=== PATIENT | female | born 1945 | race Caucasian/White ===

== ENCOUNTER 2019-11-22 21:34 | Inpatient (IN) | payer MEDICARE ==
[2019-11-22 21:40] VITALS: BP 177/89
[2019-11-22] MEDS ORDERED: TRAM50TA PO (22:23)
[2019-11-22] MEDS ORDERED: PROP20TA PO (22:23)
[2019-11-22] MEDS ORDERED: BACL10TA PO (22:23)
[2019-11-22] MEDS ORDERED: ENOX40DI SQ (22:23)
[2019-11-22] MEDS ORDERED: MECL-75 PO (22:23)
[2019-11-22] MEDS ORDERED: LISI-334 PO (22:23)
[2019-11-22] MEDS ORDERED: ALLO100T PO (22:23)
[2019-11-22] MEDS ORDERED: PANT40TA6 PO (22:23)
[2019-11-22] MEDS ORDERED: BUPR150T11 PO (22:23)
[2019-11-22] MEDS ORDERED: MELO15TA23 PO (22:23)
[2019-11-22] MEDS ORDERED: INSU100I13 SQ (22:23)
[2019-11-22] MEDS ORDERED: MEMA5TAB PO (22:23)
[2019-11-22] MEDS ORDERED: METR500T PO (22:23)
[2019-11-22] MEDS ORDERED: CLOP75TA PO (22:23)
[2019-11-22] MEDS ORDERED: LORA-254 PO (22:23)
[2019-11-22] MEDS ORDERED: PRED20TA PO (22:23)
[2019-11-22] MEDS ORDERED: GABA-586 PO (22:23)
[2019-11-22] MEDS ORDERED: DULO60CA6 PO (22:23)
[2019-11-22] MEDS ORDERED: MECLIZINE 12.5 MG TABLET. PO PRN (22:45)
[2019-11-22] MEDS: BACLOFEN 10 MG TABLET PO PRN (23:36)
[2019-11-22] MEDS: GABAPENTIN 300 MG CAPSULE. PO SCH (23:36)
[2019-11-22] MEDS: PROPRANOLOL 20 MG TABLET. PO SCH (23:37)
[2019-11-22] MEDS: LORazepam 1 MG TABLET PO SCH (23:37)
[2019-11-22] MEDS: metroNIDAZOLE 500 MG TABLET PO SCH (23:37)
--- NOTE | 2019-11-23 03:57 | NUR ---
Nursing Note Pt arrives from [facility] ED with no report. Pt is tearful and upset from arrival to the unit. States that she will not harm herself, that she is sad her and really wants to join him. But that she is merely broken hearted and wants to be with him. She is missing him and is lost and sad. She claims her children hate to see her this way and made her move into an assisted living, but she doesn't want to stay there.
--- NOTE | 2019-11-23 04:01 | NUR ---
Nursing Note Pt contracts for safety on arrival, also blood sugar is 300 on arrival to unit.
[2019-11-23 06:14] VITALS: BP 152/65
[2019-11-23] MEDS ORDERED: DICLOFENAC SODIUM 1% TOPICAL GEL 100GM TUBE. TP PRN (07:30)
[2019-11-23] MEDS ORDERED: traMADol 50 MG TABLET PO PRN (07:30)
[2019-11-23] MEDS ORDERED: LORazepam 1 MG TABLET PO PRN (07:30)
[2019-11-23] MEDS ORDERED: TRAM50TA PO (07:33)
[2019-11-23] MEDS ORDERED: DICL100G28 TP (07:33)
[2019-11-23] MEDS ORDERED: MECL-75 PO (07:33)
[2019-11-23] MEDS ORDERED: LORA-254 PO (07:33)
[2019-11-23] MEDS: metroNIDAZOLE 500 MG TABLET PO SCH ×3 (07:51→22:00)
[2019-11-23] MEDS ORDERED: MECLIZINE 12.5 MG TABLET. PO PRN (08:00)
--- NOTE | 2019-11-23 08:04 | EKG ---
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
[2019-11-23] MEDS: ENOXAPARIN 40 MG/0.4 ML SYRINGE. SQ SCH ×2 (09:51→11:08)
--- NOTE | 2019-11-23 11:00 | NUR ---
Patient refused to take Lovenox. She stated "I know what it is and what it does" when nurse attempted to provide education. Patient compliant with remaining medication but did say that it looked like more than she usually takes. Patient has been tearful, she told nurse that her had in May 2019 after a lengthy mcduffie with cancers. She feels that she "didn't do enough to save him".
[2019-11-23] MEDS: GABAPENTIN 300 MG CAPSULE. PO SCH ×3 (11:06→20:51)
[2019-11-23] MEDS: ALLOPURINOL 100 MG TABLET. PO SCH (11:06)
[2019-11-23] MEDS: traMADol 50 MG TABLET PO SCH (11:06)
[2019-11-23] MEDS: DULoxetine HCL 60 MG CAPSULE.DR PO SCH (11:06)
[2019-11-23] MEDS: CLOPIDOGREL BISULFATE 75 MG TABLET PO SCH (11:06)
[2019-11-23] MEDS: predniSONE 20 MG TABLET PO SCH (11:07)
[2019-11-23] MEDS: MEMANTINE 5 MG TABLET. PO SCH (11:07)
[2019-11-23] MEDS: MELOXICAM 15 MG TABLET. PO SCH (11:07)
[2019-11-23] MEDS: PANTOPRAZOLE 40 MG TABLET. PO SCH (11:07)
[2019-11-23] MEDS: LISINOPRIL 20 MG TABLET PO SCH (11:07)
[2019-11-23] MEDS: PROPRANOLOL 20 MG TABLET. PO SCH ×2 (11:09→20:51)
[2019-11-23] MEDS: INSULIN GLARGINE SYRINGE. SQ SCH (11:34)
--- NOTE | 2019-11-23 14:50 | NUR ---
Patient is tearful and states she is angry. She told ICU nurse "all you want to do is take my blood". When he attempted to console her she became more upset. This nurse and [employer] have reassured her and validated her feelings. She remains tearful. Addendum: 11/23/19 at 1502 by ASHLIE YOU RN Patient has stated that she will leave today, she is checking herself out. She stated "last time I checked [place] still [place] free [place]". She has stated again that she is upset about the blood draw. Nurse spoke to patient about advantages of staying here and getting help vs possibly leaving. Patient is not listening to education provided by nurse about [facility], Dr. Parra and the services we offer. Patient refused to take her 1400 metronidazole despite being provided education. Patient was compliant with 1400 gabapentin.
[2019-11-23 15:02] LABS: BASO # 0.1 x10^3/uL (0.0-0.2); BASO % 1 % (0-3); EOS # 0.1 x10^3/uL (0.0-0.7); EOS % 1 % (0-3); HEMATOCRIT 44.3 % (36.0-47.0); LYMPH # 0.8 x10^3/uL (1.0-4.8); LYMPH % 6 % (24-48); MEAN CORPUSCULAR HEMOGLOBIN 28 pg (25-35); MEAN CORPUSCULAR HGB CONC 32 g/dL (31-37); MEAN CORPUSCULAR VOLUME 88 fL (79-100); MONO # 0.4 x10^3/uL (0.0-1.1); MONO % 3 % (0-9); NEUT # 10.7 x10^3uL (1.8-7.7); NEUT % 89 % (31-73); PLATELET COUNT 253 x10^3/uL (140-400); RED BLOOD COUNT 5.04 x10^6/uL (3.50-5.40); RED CELL DISTRIBUTION WIDTH 14.7 % (11.5-14.5)
[2019-11-23 15:09] VITALS: BP 172/82
[2019-11-23 15:21] LABS: ALBUMIN 3.7 g/dL (3.4-5.0); ALBUMIN/GLOBULIN RATIO 1.2 (1.0-1.7); CALCIUM 8.9 mg/dL (8.5-10.1); CREATININE 1.2 mg/dL (0.6-1.0); GFR 44.2; POTASSIUM 4.8 mmol/L (3.5-5.1); TOTAL BILIRUBIN 0.4 mg/dL (0.2-1.0); TOTAL PROTEIN 6.7 g/dL (6.4-8.2)
--- NOTE | 2019-11-23 18:24 | NUR ---
Blood sugars AC: 134, 175, 229. Patient has a "dexcom patch" with a monitoring device and kenn on her phone. She is concerned that the patch expires 12/01/19 and she will not be able to get new supplies.
[2019-11-23 20:46] VITALS: BP 197/87
[2019-11-23] MEDS: LORazepam 1 MG TABLET PO SCH (20:51)
[2019-11-23] MEDS: BACLOFEN 10 MG TABLET PO PRN (22:00)
--- NOTE | 2019-11-23 22:09 | PDOC ---
Exam Note: Lyle Note: Please also refer to the separate dictated note~for this date of service dictated separately.~Patient seen individually. Discussed the patient with Nursing staff reviewed the chart.~Reviewed interim history and current functioning. Reviewed vital signs,~Labs/ Radiology~and current medications noted below. Continue current treatment with the changes noted in the dictated addendum note Assessment: Vital Signs/I&O: Vital Signs Date Time Temp Pulse Resp B/P (MAP) Pulse Ox O2 Delivery O2 Flow Rate FiO2 11/23/19 22:00 95 11/23/19 20:51 85 197/87 11/23/19 20:46 97.5 20 I & O 11/22/19 11/22/19 11/23/19 15:00 23:00 07:00 Intake Total 300 ml 100 ml Balance 300 ml 100 ml Labs: Laboratory Tests Test 11/23/19 14:30 11/23/19 19:34 White Blood Count 12.0 x10^3/uL (4.0-11.0) H Red Blood Count 5.04 x10^6/uL (3.50-5.40) Hemoglobin 14.0 g/dL (12.0-15.5) Hematocrit 44.3 % (36.0-47.0) Mean Corpuscular Volume 88 fL (79-100) Mean Corpuscular Hemoglobin 28 pg (25-35) Mean Corpuscular Hemoglobin Concent 32 g/dL (31-37) Red Cell Distribution Width 14.7 % (11.5-14.5) H Platelet Count 253 x10^3/uL (140-400) Neutrophils (%) (Auto) 89 % (31-73) H Lymphocytes (%) (Auto) 6 % (24-48) L Monocytes (%) (Auto) 3 % (0-9) Eosinophils (%) (Auto) 1 % (0-3) Basophils (%) (Auto) 1 % (0-3) Neutrophils # (Auto) 10.7 x10^3uL (1.8-7.7) H Lymphocytes # (Auto) 0.8 x10^3/uL (1.0-4.8) L Monocytes # (Auto) 0.4 x10^3/uL (0.0-1.1) Eosinophils # (Auto) 0.1 x10^3/uL (0.0-0.7) Basophils # (Auto) 0.1 x10^3/uL (0.0-0.2) Sodium Level 137 mmol/L (136-145) Potassium Level 4.8 mmol/L (3.5-5.1) Chloride Level 102 mmol/L (98-107) Carbon Dioxide Level 21 mmol/L (21-32) Anion Gap 14 (6-14) Blood Urea Nitrogen 28 mg/dL (7-20) H Creatinine 1.2 mg/dL (0.6-1.0) H Estimated GFR (Cockcroft-Gault) 44.2 BUN/Creatinine Ratio 23 (6-20) H Glucose Level 276 mg/dL (70-99) H Calcium Level 8.9 mg/dL (8.5-10.1) Magnesium Level 2.3 mg/dL (1.8-2.4) Total Bilirubin 0.4 mg/dL (0.2-1.0) Aspartate Amino Transferase (AST) 16 U/L (15-37) Alanine Aminotransferase (ALT) 29 U/L (14-59) Alkaline Phosphatase 100 U/L (46-116) Total Protein 6.7 g/dL (6.4-8.2) Albumin 3.7 g/dL (3.4-5.0) Albumin/Globulin Ratio 1.2 (1.0-1.7) Glucose (Fingerstick) 293 mg/dL (70-99) H Current Medications: Meds: Current Medications Medications (Trade) Dose Ordered Sig/Velia Route PRN Reason Start Time Stop Time Status Last Admin Dose Admin Allopurinol (Zyloprim) 100 mg DAILY PO 11/23/19 09:00 11/23/19 11:06 Baclofen (Lioresal) 10 mg PRN TID PRN PO PAIN 11/22/19 22:30 11/23/19 22:00 Clopidogrel Bisulfate (Plavix) 75 mg DAILY PO 11/23/19 09:00 11/23/19 11:06 Duloxetine HCl (Cymbalta) 60 mg DAILY PO 11/23/19 09:00 11/23/19 11:06 Enoxaparin Sodium (Lovenox 40mg Syringe) 40 mg DAILY SQ 11/23/19 09:00 11/23/19 11:08 Gabapentin (Neurontin) 300 mg TID PO 11/23/19 00:00 11/23/19 20:51 Lisinopril (Prinivil) 20 mg DAILY PO 11/23/19 09:00 11/23/19 11:07 Lorazepam (Ativan) 1 mg QHS PO 11/23/19 00:00 11/23/19 20:51 Meloxicam (Mobic) 15 mg DAILY PO 11/23/19 09:00 11/23/19 11:07 Memantine (Namenda) 5 mg DAILY PO 11/23/19 09:00 11/23/19 11:07 Metronidazole (Flagyl) 500 mg Q8HRS PO 11/23/19 00:00 11/23/19 14:49 Pantoprazole Sodium (Protonix) 40 mg DAILYAC PO 11/23/19 07:30 11/23/19 11:07 Prednisone (Prednisone) 20 mg DAILY PO 11/23/19 09:00 11/23/19 11:07 Propranolol HCl (Inderal) 20 mg BID PO 11/23/19 00:00 11/23/19 20:51 Tramadol HCl (Ultram) 50 mg DAILY PO 11/23/19 09:00 11/23/19 11:06 Insulin Glargine (Lantus Syringe) 20 unit DAILY08 SQ 11/23/19 08:00 11/23/19 11:34 Tramadol HCl (Ultram) 50 mg PRN DAILY PRN PO PAIN 11/23/19 07:30 11/23/19 22:00 I have reviewed the current psychotropics carefully including drug interactions. Risk benefit ratio favors no change other than as noted in my dictated progress note. ARIS MONTES MD Nov 23, 2019 22:09
--- NOTE | 2019-11-24 01:40 | NUR ---
Pt sitting up on side of bed at shift change. Pt A/O, tearful/crying but interactive and open to talking with staff about her feelings. Pt spoke to me at length about her family as well as her recent losses. Pt having difficulty seeing past the pain of losing her recently, although she is able to identify the many positive aspects in her life. Pt able to express herself and verbalize her feelings to the staff. Pt cooperative and compliant with assessment and medications administered whole. PRN Tramadol and PRN Baclofen administered at HS for c/o chronic back and neck pain.
[2019-11-24] MEDS: metroNIDAZOLE 500 MG TABLET PO SCH ×3 (06:00→21:26)
[2019-11-24] MEDS ORDERED: FLU VACC QS 2020-21(6MOS+)/PF 0.5 ML SYRINGE. VAX IM ONE ×2 (09:00)
[2019-11-24 09:18] VITALS: BP 128/63
[2019-11-24] MEDS: ENOXAPARIN 40 MG/0.4 ML SYRINGE. SQ SCH (09:52)
[2019-11-24] MEDS: MEMANTINE 5 MG TABLET. PO SCH (09:53)
[2019-11-24] MEDS: predniSONE 20 MG TABLET PO SCH (09:53)
[2019-11-24] MEDS: DULoxetine HCL 60 MG CAPSULE.DR PO SCH (09:53)
[2019-11-24] MEDS: LISINOPRIL 20 MG TABLET PO SCH (09:53)
[2019-11-24] MEDS: PANTOPRAZOLE 40 MG TABLET. PO SCH (09:53)
[2019-11-24] MEDS: GABAPENTIN 300 MG CAPSULE. PO SCH ×3 (09:53→21:00)
[2019-11-24] MEDS: traMADol 50 MG TABLET PO SCH (09:54)
[2019-11-24] MEDS: MELOXICAM 15 MG TABLET. PO SCH (09:54)
[2019-11-24] MEDS: PROPRANOLOL 20 MG TABLET. PO SCH ×2 (09:54→21:09)
[2019-11-24] MEDS: CLOPIDOGREL BISULFATE 75 MG TABLET PO SCH (09:54)
[2019-11-24] MEDS: ALLOPURINOL 100 MG TABLET. PO SCH (09:54)
[2019-11-24] MEDS: INSULIN GLARGINE SYRINGE. SQ SCH (09:56)
--- NOTE | 2019-11-24 13:20 | HP ---
ADMIT DATE: 11/22/2019 ATTENDING PHYSICIAN: Dr. Parra. HISTORY OF PRESENT ILLNESS: The patient is a 73-year-old female from [place], [place]. She was [facility] and she was sent here for COVID precautions. I am seeing her for her initial history and physical. She is fairly alert. She was very depressed and had suicidal ideations. Please refer to Dr. Parra's note already. Her of multiple myeloma in May of this year. Because of the COVID infection, she could not be with him. She is having quite a bit of remorse, very tearful. She does not have an active plan, but she seems very depressed and she is having an acute grief reaction in addition to her depression. PAST MEDICAL HISTORY: Significant for type 2 diabetes, hyperlipidemia, gout, major depression, hypertension, gastroesophageal reflux disease, chronic low back pain, fibromyalgia and recent fall. PAST SURGICAL HISTORY: Includes appendectomy, 2 sections, spine surgery with fusion, laminectomy in 2017. SOCIAL HISTORY: She had been for 47 years. She is recently in May of this year. She is a nonsmoker, nondrinker. HOME MEDICATIONS: Include allopurinol, baclofen, bupropion, Plavix, diclofenac, Cymbalta, Neurontin, Jardiance, Lantus, lisinopril, lorazepam, meclizine, meloxicam, Namenda, metformin, metronidazole, Protonix, probiotic and propranolol. ALLERGIES: SHE HAS ALLERGIES TO ASPIRIN, CEFTIN, FENTANYL, LATEX, LEVAQUIN, LORTAB, PENICILLIN AND SULFA DRUGS. FAMILY HISTORY: Father had diabetes. Mom had heart disease and coronary bypass in her 50s, she has had a stroke. One uncle had diabetes. REVIEW OF SYSTEMS: Significant for the major depression, the recent loss of her , they were for 47 years. She has increased crying spells, no appetite, trouble sleeping, her mind wanders. She is diabetic as noted. She is asking about her medications. All other systems reviewed and turned to be negative. PHYSICAL EXAMINATION: GENERAL: When I saw her, this is a pleasant female, who became tearful upon talking about her social situation. INITIAL VITAL SIGNS: Showed a blood pressure of 128/63, pulse is 68 and regular, she was afebrile, oxygen saturation 95% on room air. HEENT: Head is without trauma. Pupils are reactive. Sclerae nonicteric. Oropharynx is clear. NECK: Supple, no bruits identified. LUNGS: Otherwise clear. CARDIOVASCULAR: Showed regular heart tones. No gallops. Peripheral pulses are palpable and full. ABDOMEN: Soft, scaphoid, nontender, no organomegaly. Bowel sounds were hypoactive. EXTREMITIES: Showed no cyanosis or edema. NEUROLOGIC: Focally intact. SKIN: Warm and dry. PERTINENT LABORATORY STUDIES: Her electrolytes were within normal range. Nonfasting blood sugar 276, creatinine 1.2 mg percent. Hemoglobin is 14.0 g/dL, white count of 12,000. ASSESSMENT: 1. This 73-year-old female has major depression following the loss of her . She has had suicidal ideations. She is scheduled to go to the [facility] for further treatment. 2. Diabetes mellitus. Her metformin has been stopped and has not had it for the last 3 days. 3. Essential hypertension. 4. Gastroesophageal reflux disease. 5. Underlying depression. 6. History of gout. RECOMMENDATIONS AND PLAN: 1. I shall restart her metformin 1000 mg b.i.d. 2. Other home medications should be continued. 3. We are waiting her coronavirus swab. 4. We shall follow closely upon her admission to the [facility]. ERIC LUIS MD DR: CHAU/tony JOB#: [id number] / [id number]
[2019-11-24 13:58] LABS: FREE T4 0.97 ng/dL (0.76-1.46); THYROID STIM HORMONE (TSH) 0.926 uIU/mL (0.358-3.740)
[2019-11-24 15:36] VITALS: BP 131/109
[2019-11-24] MEDS: metFORMIN 500 MG TABLET PO SCH (16:33)
--- NOTE | 2019-11-24 17:00 | NUR ---
Flu vaccination given in left deltoid. Patient tolerated vaccination well. Will continue to monitor.
--- NOTE | 2019-11-24 17:49 | NUR ---
Patient has had episodes of tearfulness and has been making many phone calls and sending many texts to her family and friends. She has been compliant with medications and expressed happiness that Dr Mcgowan had started her metformin. Patient has been calm most of the day but in the afternoon (both yesterday and today) she has tearful episodes where she misconstrues things that are said by staff and states staff is "bullying her" and being unkind. Nurse was listening to interchange between patient and [facility] and it was regarding patients transfer to [facility] tomorrow. Please see [facility] note regarding their interaction. Patient is also very fixated on her blood sugar number that she is getting from her meter that she wears. She has a monitor and can check blood glucose at any time. Patient told this nurse that she "might be better off from her diabetes" than to be treated the way she has been here. Patient was hiding in the bathroom and refusing to come out. Nurse went into bathroom and asked nicely for patient to come out. After validating patients feelings, nurse told patient she needed to come sit either in the bed or the chair. Eventually patient got up and sat in the chair. Patient refused to eat her dinner. She stated she does not like red meat or potatoes. Will make note of that in medical record. Patient was offered alternative dinners and she refused everything offered. Nurse advised patient that we may have some snacks available later if she gets hungry. Patient stated she will not eat our snacks. This nurse received a call from the patients daughter. Daughter wanted staff to be aware that patient is very good at denying things she has said and done, even when confronted with the truth by family members. There were several incidences of patient getting lost driving her car and the patient denied this to the family. Daughter and son feel that patient has been attention seeking and manipulative recently and is good at hiding her memory impairment. Daughter also stated that she feels that her father covered for a lot of patients behaviors while he was alive.
[2019-11-24] MEDS ORDERED: QUEtiapine 25 MG TABLET. PO SCH (21:00)
[2019-11-24 21:06] LABS: THYROXINE 6.6 ug/dL (4.5-12.0)
[2019-11-24] MEDS: LORazepam 1 MG TABLET PO SCH (21:09)
--- NOTE | 2019-11-24 21:52 | PDOC ---
Exam Note: Lyle Note: Please also refer to the separate dictated note~for this date of service dictated separately.~Patient seen individually. Discussed the patient with Nursing staff reviewed the chart.~Reviewed interim history and current functioning. Reviewed vital signs,~Labs/ Radiology~and current medications noted below. Continue current treatment with the changes noted in the dictated addendum note Assessment: Vital Signs/I&O: Vital Signs Date Time Temp Pulse Resp B/P (MAP) Pulse Ox O2 Delivery O2 Flow Rate FiO2 11/24/19 21:09 66 131/109 11/24/19 15:36 97.9 18 95 Room Air I & O 11/23/19 11/23/19 11/24/19 15:00 23:00 07:00 Intake Total 480 ml 600 ml 0 ml Balance 480 ml 600 ml 0 ml Labs: Laboratory Tests Test 11/24/19 06:25 11/24/19 07:36 Triglycerides Level 161 mg/dL (0-150) H Cholesterol Level 247 mg/dL (0-200) H LDL Cholesterol, Calculated 161 mg/dL (0-100) H VLDL Cholesterol, Calculated 32 mg/dL (0-40) Non-HDL Cholesterol Calculated 193 mg/dL (0-129) H HDL Cholesterol 54 mg/dL (40-60) Cholesterol/HDL Ratio 4.0 Vitamin B12 Level 760 pg/mL (247-911) 25-Hydroxy Vitamin D Total 27.8 ng/mL (30-100) L Thyroid Stimulating Hormone (TSH) 0.926 uIU/mL (0.358-3.740) Free Thyroxine 0.97 ng/dL (0.76-1.46) Thyroxine (T4) 6.6 ug/dL (4.5-12.0) Total Triiodothyronine (TT3) 47 ng/dL (71-180) L Glucose (Fingerstick) 143 mg/dL (70-99) H Current Medications: Meds: Current Medications Medications (Trade) Dose Ordered Sig/Velia Route PRN Reason Start Time Stop Time Status Last Admin Dose Admin Influenza Virus Vaccine Quadrival (Fluzone Quad Syringe) 0.5 ml ONCE ONCE VAX IM 11/24/19 09:00 11/24/19 09:01 DC 11/24/19 16:34 Metformin HCl (Glucophage) 1,000 mg BIDWMEALS PO 11/24/19 17:00 11/24/19 16:33 Quetiapine Fumarate (SEROquel) 25 mg QHS PO 11/24/19 21:00 11/24/19 21:08 I have reviewed the current psychotropics carefully including drug interactions. Risk benefit ratio favors no change other than as noted in my dictated progress note. ARIS MONTES MD Nov 24, 2019 21:52
[2019-11-25 03:59] VITALS: BP 126/63
[2019-11-25 04:08] LABS: HEMOGLOBIN A1C 8.1 % (4.8-5.6)
[2019-11-25] MEDS ORDERED: QUET25TA5 PO (04:38)
[2019-11-25] MEDS ORDERED: METF10007 PO (04:40)
[2019-11-25] MEDS: metroNIDAZOLE 500 MG TABLET PO SCH ×3 (06:00→20:49)
[2019-11-25 06:23] VITALS: BP 148/83
[2019-11-25] MEDS: PANTOPRAZOLE 40 MG TABLET. PO SCH (08:47)
[2019-11-25] MEDS: GABAPENTIN 300 MG CAPSULE. PO SCH ×3 (08:47→20:49)
[2019-11-25] MEDS: DULoxetine HCL 60 MG CAPSULE.DR PO SCH (08:47)
[2019-11-25] MEDS: metFORMIN 500 MG TABLET PO SCH ×2 (08:47→17:18)
[2019-11-25] MEDS: MELOXICAM 15 MG TABLET. PO SCH (08:47)
[2019-11-25] MEDS: LISINOPRIL 20 MG TABLET PO SCH (08:47)
[2019-11-25] MEDS: ALLOPURINOL 100 MG TABLET. PO SCH (08:48)
[2019-11-25] MEDS: MEMANTINE 5 MG TABLET. PO SCH (08:48)
[2019-11-25] MEDS: traMADol 50 MG TABLET PO SCH (08:48)
[2019-11-25] MEDS: CLOPIDOGREL BISULFATE 75 MG TABLET PO SCH (08:48)
[2019-11-25] MEDS: predniSONE 20 MG TABLET PO SCH (08:48)
[2019-11-25] MEDS: PROPRANOLOL 20 MG TABLET. PO SCH ×2 (08:50→21:05)
[2019-11-25] MEDS: INSULIN GLARGINE SYRINGE. SQ SCH (08:54)
--- NOTE | 2019-11-25 09:41 | CONS ---
DATE OF CONSULTATION: 11/23/2019 PSYCHIATRIC ADMISSION HISTORY/EVALUATION This late entry 11/23/2019 covers the elements not covered in my initial note. I met with the patient evening of 11/23/2019, discussed with FARZANEH Pardo and Marta Lang, transitions rn care coordinator earlier in the day. IDENTIFYING DATA: The patient is a 73-year-old female referred to us from where she presented from [facility] with worsening symptoms of depression, suicidal ideation, making statements of wanting to . She had made statements that she would stop her medications or go to her son's home to get a firearm and end her life. She was tearful, paranoid. Her spouse in May of this year and she has been having worsening symptoms of depression, isolation, withdrawal since then. She was placed at the above assisted living, but not happy with it. CHIEF COMPLAINT: "I just can't get over it. We had a farming family. I can't live without my . I have been depressed. My children are trying to help me, but it is getting worse." HISTORY OF PRESENT ILLNESS: The patient admits to worsening symptoms of depression, sleep and appetite changes, feeling hopeless, helpless, worthless, and suicidal ideation since her earlier in the year. She states her 's family is [place], very stoic __. She has difficulty communicating her depression with her children. No clear symptoms of bipolar disorder. Cognitively, she has had some short-term memory deficits, but reasonably cognitively intact. PAST PSYCHIATRIC HISTORY: As above. MEDICAL HISTORY: Positive for gout, status post CVA. No pain, diabetes mellitus, hypertension, arthritis, vertigo, epilepsy, osteoarthritis, status post C. diff on Flagyl. ACCU-CHEKS: Before meals and at bedtime. DIET: Regular. Takes medications whole, ambulates up with walker. UA was negative. CODE STATUS: DNR. ALLERGIES: ASPIRIN, CEFTIN, FENTANYL, LATEX, NATURAL RUBBER, LEVAQUIN, LORTAB, PENICILLIN, SULFA. CURRENT PSYCHOTROPICS: Cymbalta 60 mg a day, Neurontin 300 mg 3 times a day, Namenda 5 mg daily, Ativan 1 mg at bedtime. FAMILY HISTORY: Noncontributory. SOCIAL HISTORY: No history of alcohol, drug abuse, physical, sexual or elder abuse. She is not known to be a perpetrator. REACTION TO HOSPITALIZATION: The patient accepting of it. REVIEW OF SYSTEMS: No CV, , pulmonary, eye system symptoms on review. MENTAL STATUS EXAMINATION: The patient is alert, oriented and cooperative. Speech is coherent, rapid at times, anxious. Abstraction is fair, computation somewhat impaired, language function intact, attention span short. Mood and affect is depressed, hopeless, helpless, and worthless. Denies active suicidal ideation. Attention span is short. LABORATORY DATA: Reviewed. IMPRESSION: Major depressive disorder, recurrent, severe, anxiety disorder, unspecified; impulse control disorder, unspecified; mild cognitive impairment. Rest as above. PLAN: The patient is on the detention unit, awaiting COVID negative status before she moved to the [facility]. Continue the patient on her current psychotropics. Observe baseline, adjust as clinically indicated. Transition to [facility] once medically stable. ARIS MONTES MD DR: VISHNU/tony JOB#: [id number] / [id number]
--- NOTE | 2019-11-25 12:22 | PN ---
DATE: 11/25/2019 ATTENDING PHYSICIAN: Dr. Luis. SUBJECTIVE: The patient is very distraught. She is scared about going upstairs to the unit. She is very anxious about her blood sugars, still having fits of crying and depression over the of her . OBJECTIVE FINDINGS: VITAL SIGNS: Her blood pressure today is 148/83, pulse is 67 and regular, temperature 98.4 degrees Fahrenheit, oxygen saturation 96% on room air. HEENT: Head is without trauma. Pupils are reactive. Sclerae nonicteric. Oropharynx clear. NECK: Supple, no bruits. LUNGS: Otherwise clear. CARDIOVASCULAR: Showed regular heart tones. No gallops. ABDOMEN: Soft. EXTREMITIES: Without edema. NEUROLOGIC: Focally intact. Speech is fluent. Affect is very tearful. ASSESSMENT: 1. A 73-year-old female with major depression following the of her . 2. Type 2 diabetes. 3. Essential hypertension. 4. Significant anxiety component. 5. Significant paranoia. 6. History of gout. 7. Gastroesophageal reflux disease. PLAN: 1. Medications reviewed. 2. I think she would benefit from low dose Xanax 0.25 mg 3 times a day schedule. 3. Await COVID-19 swab. 4. I explained to her that the [facility] will help her with the depression. It is not a permanent situation and that she will hopefully feel better to get to go home. ERIC LUIS MD DR: CHAU/tony JOB#: [id number] / [id number]
[2019-11-25] MEDS: ALPRAZolam 0.25 MG TABLET PO SCH ×2 (14:36→20:49)
[2019-11-25 18:30] VITALS: BP 133/71
[2019-11-25] MEDS ORDERED: QUEtiapine 50 MG TABLET. PO SCH (21:00)
[2019-11-25] MEDS: LACTOBACILLUS RHAMNOSUS GG 1 CAPSULE. PO SCH (21:08)
[2019-11-25] MEDS ORDERED: MAGNESIUM HYDROXIDE 2,400 MG/30 ML ORAL.SUSP. PO PRN (21:45)
--- NOTE | 2019-11-25 21:59 | PDOC ---
Exam Note: Lyle Note: Please also refer to the separate dictated note~for this date of service dictated separately.~Patient seen individually. Discussed the patient with Nursing staff reviewed the chart.~Reviewed interim history and current functioning. Reviewed vital signs,~Labs/ Radiology~and current medications noted below. Continue current treatment with the changes noted in the dictated addendum note Assessment: Vital Signs/I&O: Vital Signs Date Time Temp Pulse Resp B/P (MAP) Pulse Ox O2 Delivery O2 Flow Rate FiO2 11/25/19 21:05 71 133/71 11/25/19 18:30 97.7 18 98 11/25/19 10:00 Room Air I & O 11/24/19 11/24/19 11/25/19 15:00 23:00 07:00 Intake Total 840 ml 480 ml 120 ml Balance 840 ml 480 ml 120 ml Current Medications: Meds: Current Medications Medications (Trade) Dose Ordered Sig/Velia Route PRN Reason Start Time Stop Time Status Last Admin Dose Admin Alprazolam (Xanax) 0.25 mg TID PO 11/25/19 14:00 11/25/19 20:49 Lactobacillus Rhamnosus (Culturelle) 1 cap BID PO 11/25/19 21:00 11/25/19 21:08 Quetiapine Fumarate (SEROquel) 50 mg QHS PO 11/25/19 21:00 11/25/19 20:50 I have reviewed the current psychotropics carefully including drug interactions. Risk benefit ratio favors no change other than as noted in my dictated progress note. Diagnosis: Problems: (1) MDD (major depressive disorder) (2) Mild cognitive impairment (3) Anxiety disorder, unspecified (4) Impulse control disorder, unspecified ARIS MONTES MD Nov 25, 2019 21:59
[2019-11-26] MEDS: metroNIDAZOLE 500 MG TABLET PO SCH (05:44)
[2019-11-26 06:07] VITALS: BP 107/58
--- NOTE | 2019-11-26 06:30 | PDOC ---
Exam Note: Lyle Note: This note is a late entry for 11/24/2019 covers elements not covered in my initial note. Subjective: The patient was seen face to face in the evening of 11/24/2019. Discussed with nursing staff, reviewed the chart. Overall the patient has been less anxious, still quite apprehensive, obsessive with mood lability. Review of Systems: No CV, , pulmonary, eye system symptoms on review. Mental Status Exam: The patient is reasonably oriented. Speech is coherent, somewhat pressured at times. Abstraction fair. Computation impaired. Language function intact. Attention span short. Mood and affect remains labile, depressed. No active suicidal ideation. Laboratory Data: Reviewed. Impression: Major depressive disorder severe. Anxiety disorder unspecified. Mild cognitive impairment. Plan: No change from initial note. We may need to increase Seroquel as clinically indicated. Assessment: Vital Signs/I&O: Vital Signs Date Time Temp Pulse Resp B/P (MAP) Pulse Ox O2 Delivery O2 Flow Rate FiO2 11/26/19 06:07 97.6 63 16 107/58 (74) 96 11/25/19 10:00 Room Air I & O 11/25/19 11/25/19 11/26/19 15:00 23:00 07:00 Intake Total 600 ml 740 ml 200 ml Balance 600 ml 740 ml 200 ml Current Medications: Meds: Current Medications Medications (Trade) Dose Ordered Sig/Velia Route PRN Reason Start Time Stop Time Status Last Admin Dose Admin Alprazolam (Xanax) 0.25 mg TID PO 11/25/19 14:00 11/25/19 20:49 Lactobacillus Rhamnosus (Culturelle) 1 cap BID PO 11/25/19 21:00 11/25/19 21:08 Quetiapine Fumarate (SEROquel) 50 mg QHS PO 11/25/19 21:00 11/25/19 20:50 I have reviewed the current psychotropics carefully including drug interactions. Risk benefit ratio favors no change other than as noted in my dictated progress note. Diagnosis: Problems: (1) Impulse control disorder, unspecified (2) Mild cognitive impairment (3) Anxiety disorder, unspecified (4) MDD (major depressive disorder) ARIS MONTES MD Nov 26, 2019 06:30
--- NOTE | 2019-11-26 06:52 | PDOC ---
Exam Note: Lyle Note: This note is a late entry for 11/25/2019 covers elements not covered in my initial note. Subjective: The patient was reviewed on telehealth rounds in the evening of 11/25/2019 with Attila MOY. Discussed with nursing staff, reviewed the chart. She was tearful previous night, somewhat anxious, labile in her mood. She was doing better during the day today and subjectively stated she felt much better. Review of Systems: No CV, , pulmonary, eye system symptoms on review. Mental Status Exam: The patient is reasonably oriented. She is less labile, less anxious, repeatedly stating how much better she felt. Speech is coherent, somewhat pressured at times. Abstraction fair. Computation impaired. Language function intact. Attention span short. Mood and affect remains labile, depressed. No active suicidal ideation. Laboratory Data: Reviewed. Impression: Major depressive disorder severe. Anxiety disorder unspecified. Mild cognitive impairment. Plan: No change from initial note. She is currently on Seroquel 25 mg h.s. We will increase to 50 mg h.s. Make further adjustments as clinically indicated. Assessment: Vital Signs/I&O: Vital Signs Date Time Temp Pulse Resp B/P (MAP) Pulse Ox O2 Delivery O2 Flow Rate FiO2 11/26/19 06:07 97.6 63 16 107/58 (74) 96 11/25/19 10:00 Room Air I & O 11/25/19 11/25/19 11/26/19 15:00 23:00 07:00 Intake Total 600 ml 740 ml 200 ml Balance 600 ml 740 ml 200 ml Current Medications: Meds: Current Medications Medications (Trade) Dose Ordered Sig/Velia Route PRN Reason Start Time Stop Time Status Last Admin Dose Admin Alprazolam (Xanax) 0.25 mg TID PO 11/25/19 14:00 11/25/19 20:49 Lactobacillus Rhamnosus (Culturelle) 1 cap BID PO 11/25/19 21:00 11/25/19 21:08 Quetiapine Fumarate (SEROquel) 50 mg QHS PO 11/25/19 21:00 11/25/19 20:50 I have reviewed the current psychotropics carefully including drug interactions. Risk benefit ratio favors no change other than as noted in my dictated progress note. Diagnosis: Problems: (1) Impulse control disorder, unspecified (2) Mild cognitive impairment (3) Anxiety disorder, unspecified (4) MDD (major depressive disorder) ARIS MONTES MD Nov 26, 2019 06:52
[2019-11-26] MEDS: PANTOPRAZOLE 40 MG TABLET. PO SCH (08:08)
[2019-11-26] MEDS: CLOPIDOGREL BISULFATE 75 MG TABLET PO SCH (08:08)
[2019-11-26] MEDS: ALLOPURINOL 100 MG TABLET. PO SCH (08:08)
[2019-11-26] MEDS: MELOXICAM 15 MG TABLET. PO SCH (08:08)
[2019-11-26] MEDS: MEMANTINE 5 MG TABLET. PO SCH (08:09)
[2019-11-26] MEDS: LACTOBACILLUS RHAMNOSUS GG 1 CAPSULE. PO SCH (08:09)
[2019-11-26] MEDS: LISINOPRIL 20 MG TABLET PO SCH (08:09)
[2019-11-26] MEDS: GABAPENTIN 300 MG CAPSULE. PO SCH (08:09)
[2019-11-26] MEDS: DULoxetine HCL 60 MG CAPSULE.DR PO SCH (08:10)
[2019-11-26] MEDS: traMADol 50 MG TABLET PO SCH (08:10)
[2019-11-26] MEDS: ALPRAZolam 0.25 MG TABLET PO SCH (08:10)
[2019-11-26] MEDS: metFORMIN 500 MG TABLET PO SCH (08:10)
[2019-11-26] MEDS: predniSONE 20 MG TABLET PO SCH (08:10)
[2019-11-26] MEDS: PROPRANOLOL 20 MG TABLET. PO SCH (08:11)
[2019-11-26] MEDS: INSULIN GLARGINE SYRINGE. SQ SCH (08:14)
[2019-11-26 09:41] VITALS: BP 126/66
--- NOTE | 2019-11-26 10:11 | DS ---
DATE OF DISCHARGE: 11/26/2019 ATTENDING PHYSICIAN: Dr. Luis. FINAL DISCHARGE DIAGNOSES: 1. A 73-year-old female with major depression following the of her . 2. Suicidal ideations. 3. Type 2 diabetes mellitus. 4. Essential hypertension. 5. Gastroesophageal reflux disease. 6. History of gout. HISTORY AND PHYSICAL: The patient is a 73-year-old female was for 47 years, lost her to a cancer. She has been very depressed. She has had suicidal ideation. She was sent to the behavioral unit from [place], [place]. She was admitted to the medical floor for COVID-19 screening. PHYSICAL EXAMINATION: Please see my dictated note. PERTINENT LABORATORY AND X-RAY STUDIES: Admission hemoglobin was maintained at 14.0 g/dL, white count 12,000. Chemistry panel showed a nonfasting blood sugar down to 143, cholesterol was 247, vitamin levels were noted. COVID-19 coronavirus PCR was negative. COURSE IN THE HOSPITAL: She was admitted, started on her home meds. I did recommend scheduled Xanax has helped in improvement in her anxiety issues. Other medical regimen were continued. She did well. Her COVID swab came back negative. On the third hospital day, her vital signs were quite stable. She was calmer. Blood pressure is 107/58. Pulse and respirations were normal and oxygen saturation 96% on room air. She is discharged upstairs and to continue inpatient psychiatric care at the Behavioral Unit. She will continue her allopurinol, baclofen, Plavix, diclofenac gel, Cymbalta 60 mg, Neurontin, regular insulin, lisinopril, Ativan, lorazepam, meclizine, Namenda, metformin, Protonix, prednisone, propranolol, Seroquel, tramadol, dose is unchanged. For now, we stopped her Lovenox. I do not think she needs any prednisone at this time. She was discharged from our hospital in stable condition with explicit instructions and followup care. ERIC LUIS MD DR: CHAU/tony JOB#: [id number] / [id number] ARIS Mcmanus MD
[2019-11-26 11:05] VITALS: BP 127/64
--- NOTE | 2019-11-26 11:15 | NUR ---
Patient discharged to [facility]. Patient education handout provided; Report was given to FARZANEH Roberson on [facility]. Patient was transported with personal belongings via wheelchair.
== END 2019-11-26 11:15 | DRG 880 ==
LOC: LND 21:34
PROVIDERS: ADMIT Internal Medicine; ATTEND Internal Medicine
DX: R45.851 Suicidal ideations (principal); F33.2 Major depressive disorder, recurrent severe without psychotic features; F43.20 Adjustment disorder, unspecified; Z66 Do not resuscitate; F63.9 Impulse disorder, unspecified; F41.9 Anxiety disorder, unspecified; G31.84 Mild cognitive impairment of uncertain or unknown etiology; E11.9 Type 2 diabetes mellitus without complications; E78.5 Hyperlipidemia, unspecified; I10 Essential (primary) hypertension; G89.29 Other chronic pain; M10.9 Gout, unspecified; K21.9 Gastro-esophageal reflux disease without esophagitis; M79.7 Fibromyalgia; Z20.828 Contact with and (suspected) exposure to other viral communicable diseases; Z83.3 Family history of diabetes mellitus; Z79.84 Long term (current) use of oral hypoglycemic drugs; Z90.49 Acquired absence of other specified parts of digestive tract; Z82.3 Family history of stroke; Z82.49 Family history of ischemic heart disease and other diseases of the circulatory system; Z86.73 Personal history of transient ischemic attack (TIA), and cerebral infarction without residual deficits; Z88.0 Allergy status to penicillin; Z88.2 Allergy status to sulfonamides; Z88.8 Allergy status to other drugs, medicaments and biological substances; Z88.6 Allergy status to analgesic agent; Z88.1 Allergy status to other antibiotic agents; Z91.040 Latex allergy status
CPT/HCPCS: 36415; 80053; 80061; 82306; 82607; 82947; 83036; 83735; 84436; 84439; 84443; 84480; 85025; 90471; 93005; J1650; J1815; J7512; 90686; U0003-CS

== ENCOUNTER 2019-11-26 10:10 | Inpatient (IN) | payer MEDICARE ==
[~2019-11-26] VITALS: Ht 175.3 cm; Wt 67.6 kg
[~2019-11-26 10:10] MED LIST: ALLO100T PO; BACL10TA PO; BUPR150T11 PO; CLOP75TA PO; DICL100G28 TP; DULO60CA6 PO; ENOX40DI SQ; GABA-586 PO; INSU100I13 SQ; LISI-334 PO; LORA-254 PO; MECL-75 PO; MELO15TA23 PO; MEMA5TAB PO; METF10007 PO; METR500T PO; PANT40TA6 PO; PRED20TA PO; PROP20TA PO; QUET25TA5 PO; TRAM50TA PO
[2019-11-26] MEDS ORDERED: MAGNESIUM HYDROXIDE 2,400 MG/30 ML ORAL.SUSP. PO PRN (12:45)
[2019-11-26] MEDS ORDERED: METHYL SALICYLATE/MENTHOL TOPICAL OINTMENT 57GM TUBE. TP PRN (12:45)
[2019-11-26] MEDS ORDERED: ACETAMINOPHEN 325 MG TABLET PO PRN (12:45)
[2019-11-26] MEDS ORDERED: MAG HYDROX/AL HYDROX/SIMETH 30 ML ORAL.SUSP PO PRN (12:45)
[2019-11-26] MEDS ORDERED: DICLOFENAC SODIUM 1% TOPICAL GEL 100GM TUBE. TP PRN (13:45)
--- NOTE | 2019-11-26 13:56 | NUR ---
Pt arrived to [facility] from 48hr unit. Pt A/O x4, calm and cooperative. Pt very tearful, states she has been depressed since her passed in May 2019. Pt states that she made a statement that she wishes she was . Pt denies suicidal plan; states she is just depressed and has a lot to live for. VS taken and belongings inventoried. Pt has own walker and glasses. Pt has implanted blood glucose monitor. Per Dorothea, pt will be using [facility]'s glucometer while she is on this unit.
[2019-11-26 14:05] VITALS: BP 156/102
[2019-11-26] MEDS ORDERED: MECLIZINE 12.5 MG TABLET. PO PRN (14:15)
[2019-11-26 15:00] VITALS: BP 135/82
[2019-11-26] MEDS: ALPRAZolam 0.25 MG TABLET PO SCH ×2 (15:04→19:33)
[2019-11-26] MEDS: GABAPENTIN 300 MG CAPSULE. PO SCH ×2 (15:04→19:33)
[2019-11-26] MEDS: metroNIDAZOLE 500 MG TABLET PO SCH ×2 (15:04→19:33)
--- NOTE | 2019-11-26 16:15 | NUR ---
PSYCHOSOCIAL ASSESSMENT ADMISSION DATE: 11/26/19 CONTACT INFORMATION: DPOA/Guardian Contact Name: Taylor Tellez Contact Address: [place], [place] Contact Phone #: ETHNIC ORIGIN: REASONS FOR ADMISSION: Poor impulse control Suicidal ideation Suspicious/paranoid ADDITIONAL ADMISSION COMMENTS: According to the intake, pt expressed feelings of SI, wants to and thoughts of stopping her meds, going to son's home to get a firearm. Pt is tearful, somewhat paranoid. REASON FOR ADMISSION IN PATIENT/FAMILY'S OWN WORDS: I don't belong here. PATIENT/FAMILY EXPECTATIONS FOR ADMISSION: medication assessment LIVING SITUATION: Patient lives with: Assisted Living Other living arrangements: Contact Name: Atonarp Contact [address]: [address] [place] [address] [place] [address] Contact Phone #: Contact Fax #: FAMILY RELATIONS: Marital Status: # of Marriages: 1 # of Children: 2 [facility] Family Support: Concerned Cooperative Involved in DC Planning Additional Comments r/t Family: Pt lost her , cM, in May 2019 after a long 11 years of fighting Cancer. Pt reports that she was to her best friend for 47 years. Together, pt and her had 2 children: 1 son and 1 daughter. SIGNIFICANT PSYCHIATRIC/MEDICAL HISTORY: Psychiatric/Treatment History: This is pt first admission to [facility]. Pt did see a neurologist at [facility] and was not able to complete the assessment as pt refused to cooperate. Pt dtr reports that pt spent 37 days inpt in [place] and received an MDD diagnosis. Pertinent Family History: No mental health noted. Pt did report her sister have a disability but did not further discuss with . HISTORICAL DATA: Childhood Environment: Stressful Other-see below Childhood Environment Additional Comments: Pt reports that growing up was hard as her younger sister was disabled and needed a lot of attention from her parents. "It's okay...I learned to deal with it because she really did need the help". Trauma History: None Is Trauma: Additional Comments: NO reported incidents from pt. 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 service: N Mormon background: Pt considers herself to be Mosque but appears to not have Arabella or support from members of her christianity so she quit going. Sexual orientation: Heterosexual Educational Level: Pt received her Master's in Education Past/Present Interests/Hobbies: "nothing right now. I find happiness in nothing". Financial support/resources: Correction/Pension Monthly income: Person handling finances: Pt dtr handles pt finances Do you have a history of legal problems: N Cultural considerations: SOCIAL RELATIONSHIPS-CURRENT/PAST: Psychiatrist: None PCP: Dr. Yessenia Hines Counselor/Therapist: [facility]: None Support Group: None Closet Organizer/General Surgeon: None Other relationships: None STRENGTHS & WEAKNESSES: Patient's strengths: Good family support Good verbal skills Ambulatory Approachable Other patient strengths: Patient's weaknesses: Impulsive Poor relationships Verbally Aggressive Other patient weaknesses: PRELIMINARY PLAN OF TREATMENT: Preliminary plan: Dec. Anxiety/Panic Dec. Symp. Depression Promote Coping Skill Medication Stabilization Other preliminary treatment comments: DISCHARGE PLANNING: Discharge planning/disposition: Current Living Arrange. Outpatient Followup Additional discharge needs identified: ADDITIONAL INFORMATION: Other Pertinent Data: SW met with pt when downstairs on the 48 hour Covid unit. Pt was very tearful at the time and intially defensive of SW asking pt questions; SW explained to pt that SW just wanted to get a sense of who she was and what things were important to her, so that SW was able to make recommendations not just for her, but for her family and to the team. SW was able to discuss the of her despite how long he fought his Cancer, pt is devastated and feels she has nothing left to live for. Pt does not want to "burden" her children. And reports up until recently, she had no regard that they could have been grieving too as they lost their father. Pt reports that she took a trip to see friends out of state in August and wanted to move up there to be closer to them, but had a lot of feelings of guilt. SW highly recommends that pt attends counseling to help get pt go through those emotions and figure out her next steps in life after her . By the end of the conversation, pt was calmer and thanked SW for the visit. JORDEN will plan to contact pt family and continue to work with pt on preparing for discharge back to [place], despite pt reports of going back home to [place].
[2019-11-26] MEDS: metFORMIN 500 MG TABLET PO SCH (16:53)
[2019-11-26] MEDS: QUEtiapine 50 MG TABLET. PO SCH (19:55)
[2019-11-26] MEDS: PROPRANOLOL 20 MG TABLET. PO SCH (20:00)
[2019-11-26] MEDS ORDERED: QUEtiapine 25 MG TABLET. PO SCH (21:00)
--- NOTE | 2019-11-26 22:36 | PDOC ---
Exam Note: Lyle Note: Please also refer to the separate dictated note~for this date of service dictated separately.~Patient seen individually. Discussed the patient with Nursing staff reviewed the chart.~Reviewed interim history and current functioning. Reviewed vital signs,~Labs/ Radiology~and current medications noted below. Continue current treatment with the changes noted in the dictated addendum note Assessment: Vital Signs/I&O: Vital Signs Date Time Temp Pulse Resp B/P (MAP) Pulse Ox O2 Delivery O2 Flow Rate FiO2 11/26/19 20:00 73 135/82 11/26/19 15:00 97.8 17 98 Room Air Labs: Laboratory Tests Test 11/26/19 19:02 Glucose (Fingerstick) 232 mg/dL (70-99) H Current Medications: Meds: Current Medications Medications (Trade) Dose Ordered Sig/Velia Route PRN Reason Start Time Stop Time Status Last Admin Dose Admin Magnesium Hydroxide (Milk Of Magnesia) 2,400 mg PRN QHS PRN PO CONSTIPATION 11/26/19 12:45 11/26/19 20:12 Gabapentin (Neurontin) 300 mg TID PO 11/26/19 14:00 11/26/19 19:33 Metronidazole (Flagyl) 500 mg Q8HRS PO 11/26/19 14:30 11/28/19 22:00 11/26/19 19:33 Propranolol HCl (Inderal) 20 mg BID PO 11/26/19 21:00 11/26/19 20:00 Metformin HCl (Glucophage) 1,000 mg BIDWMEALS PO 11/26/19 17:00 11/26/19 16:53 Alprazolam (Xanax) 0.25 mg TID PO 11/26/19 14:30 11/26/19 19:33 Quetiapine Fumarate (SEROquel) 50 mg HS PO 11/26/19 21:00 11/26/19 19:55 I have reviewed the current psychotropics carefully including drug interactions. Risk benefit ratio favors no change other than as noted in my dictated progress note. Diagnosis: Problems: (1) MDD (major depressive disorder) (2) Impulse control disorder, unspecified (3) Mild cognitive impairment (4) Anxiety disorder, unspecified ARIS MONTES MD Nov 26, 2019 22:36
--- NOTE | 2019-11-27 01:13 | NUR ---
Pt spent last evening in her room or walking in the hallway. She has been cooperative pleasant and social with staff. She took her meds whole without difficulty. She reports feeling much better than she did on admit and denies SI. After going to bed she was bothered by doors closing and unit noise. Ear plugs were provided and she has been sleeping. She has had no behaviors tonight.
[2019-11-27] MEDS: metroNIDAZOLE 500 MG TABLET PO SCH ×3 (05:42→20:52)
[2019-11-27 05:49] VITALS: BP 120/76
--- NOTE | 2019-11-27 06:29 | PDOC ---
Exam Note: Lyle Note: PSYCHIATRIC ADMISSION HISTORY/EVALUATION This note is a late entry for 11/26/2019 covers elements not covered in my initial note. Subjective: The patient was reviewed on telehealth rounds in the evening of 11/26/2019 with Karol MOY. Discussed with nursing staff, reviewed the chart. Subjectively as I met with her on 11/26/2019 in the evening she stated she feels better, less anxious, more hopeful, very pleased with the changes in her psychotropics which we have initiated including Seroquel 50 mg h.s. She remains on Remeron 30 mg h.s., Cymbalta 60 mg a day, Neurontin 300 mg 3 times a day, Namenda 5 mg daily, Ativan 1 mg h.s. Identifying Data: The patient is a 73-year-old female transitioned from the assisted unit after she returned COVID negative. She was initially referred to us from [facility] on account of marked symptoms of depression, anxiety, suicidal ideation, had stopped her medications. Consultation was done on the assisted unit and is being incorporated as part of this dictation since that information has not changed. History of Present Illness: The patient admits to worsening symptoms of sleep and appetite changes, feeling hopeless, helpless, worthless, and suicidal ideation since her earlier this year. She has difficulty communicating her depression with her children. No clear symptoms of bipolar disorder. Cognitively, she has had short-term memory deficits, but reasonably cognitively intact. Past Psychiatric History: As above. Diet: Regular, takes medications whole, ambulates with walker. Code Status: DNR. Allergies: ASPIRIN, CEFTIN, FENTANYL, LATEX, NATURAL RUBBER, LEVAQUIN, LORTAB, PENICILLIN, SULFA. Current Psychotropics: Cymbalta 60 mg a day, Neurontin 300 mg 3 times a day, Namenda 5 mg daily, Ativan 1 mg bedtime. Family History: Non-contributory. Social History: No history of alcohol, drug abuse, physical, sexual and drug abuse. She is not known to be perpetrator. Review of Systems: No CV, , pulmonary, eye system symptoms on review. Mental Status Exam: The patient is reasonably oriented. Speech is coherent. Abstraction fair. Computation impaired. Language function intact. Mood and affect is improved, less anxious. No suicidal or homicidal ideation. Laboratory Data: Reviewed. Impression: Major depressive disorder recurrent. Anxiety disorder unspecified. Mild cognitive impairment. Impulse control disorder unspecified. Rest as above. Plan: No change from initial note. Continue current psychotropics. We will adjust Seroquel further as clinically indicated. Dr. Mcgowan has changed the patients Ativan 1 mg h.s. to p.r.n. and started Xanax 0.25 mg t.i.d. Assessment: Vital Signs/I&O: Vital Signs Date Time Temp Pulse Resp B/P (MAP) Pulse Ox O2 Delivery O2 Flow Rate FiO2 11/27/19 05:49 98.0 64 16 120/76 (91) 95 11/26/19 15:00 Room Air I & O 11/26/19 11/26/19 11/27/19 15:00 23:00 07:00 Intake Total 740 ml Balance 740 ml Labs: Laboratory Tests Test 11/26/19 19:02 Glucose (Fingerstick) 232 mg/dL (70-99) H Current Medications: Meds: Current Medications Medications (Trade) Dose Ordered Sig/Velia Route PRN Reason Start Time Stop Time Status Last Admin Dose Admin Magnesium Hydroxide (Milk Of Magnesia) 2,400 mg PRN QHS PRN PO CONSTIPATION 11/26/19 12:45 11/26/19 20:12 Gabapentin (Neurontin) 300 mg TID PO 11/26/19 14:00 11/26/19 19:33 Metronidazole (Flagyl) 500 mg Q8HRS PO 11/26/19 14:30 11/28/19 22:00 11/27/19 05:42 Propranolol HCl (Inderal) 20 mg BID PO 11/26/19 21:00 11/26/19 20:00 Metformin HCl (Glucophage) 1,000 mg BIDWMEALS PO 11/26/19 17:00 11/26/19 16:53 Alprazolam (Xanax) 0.25 mg TID PO 11/26/19 14:30 11/26/19 19:33 Quetiapine Fumarate (SEROquel) 50 mg HS PO 11/26/19 21:00 11/26/19 19:55 I have reviewed the current psychotropics carefully including drug interactions. Risk benefit ratio favors no change other than as noted in my dictated progress note. Diagnosis: Problems: (1) Impulse control disorder, unspecified (2) Mild cognitive impairment (3) Anxiety disorder, unspecified (4) MDD (major depressive disorder) ARIS MONTES MD Nov 27, 2019 06:29
[2019-11-27] MEDS: INSULIN GLARGINE SYRINGE. SQ SCH (08:00)
[2019-11-27] MEDS: GABAPENTIN 300 MG CAPSULE. PO SCH ×3 (08:07→20:52)
[2019-11-27] MEDS: PROPRANOLOL 20 MG TABLET. PO SCH ×2 (08:07→20:54)
[2019-11-27] MEDS: ALPRAZolam 0.25 MG TABLET PO SCH ×3 (08:07→20:52)
[2019-11-27] MEDS: metFORMIN 500 MG TABLET PO SCH ×2 (08:07→17:49)
[2019-11-27] MEDS: predniSONE 20 MG TABLET PO SCH (08:12)
[2019-11-27] MEDS: traMADol 50 MG TABLET PO SCH (08:12)
[2019-11-27] MEDS: DULoxetine HCL 60 MG CAPSULE.DR PO SCH (08:12)
[2019-11-27] MEDS: MEMANTINE 5 MG TABLET. PO SCH (08:13)
[2019-11-27] MEDS: LISINOPRIL 20 MG TABLET PO SCH (08:13)
[2019-11-27] MEDS: MELOXICAM 15 MG TABLET. PO SCH (08:13)
[2019-11-27] MEDS: CLOPIDOGREL BISULFATE 75 MG TABLET PO SCH (08:13)
[2019-11-27] MEDS: PANTOPRAZOLE 40 MG TABLET. PO SCH (08:13)
[2019-11-27] MEDS: ALLOPURINOL 100 MG TABLET. PO SCH (08:13)
[2019-11-27 08:46] LABS: BASO # 0.1 x10^3/uL (0.0-0.2); BASO % 1 % (0-3); EOS # 0.2 x10^3/uL (0.0-0.7); EOS % 2 % (0-3); HEMATOCRIT 41.1 % (36.0-47.0); HEMOGLOBIN 13.3 g/dL (12.0-15.5); LYMPH # 2.6 x10^3/uL (1.0-4.8); LYMPH % 37 % (24-48); MEAN CORPUSCULAR HEMOGLOBIN 28 pg (25-35); MEAN CORPUSCULAR HGB CONC 32 g/dL (31-37); MEAN CORPUSCULAR VOLUME 87 fL (79-100); MONO # 0.5 x10^3/uL (0.0-1.1); MONO % 7 % (0-9); NEUT # 3.7 x10^3uL (1.8-7.7); NEUT % 53 % (31-73); PLATELET COUNT 241 x10^3/uL (140-400); RED BLOOD COUNT 4.74 x10^6/uL (3.50-5.40); RED CELL DISTRIBUTION WIDTH 14.1 % (11.5-14.5)
[2019-11-27 08:58] LABS: ALBUMIN 3.3 g/dL (3.4-5.0); ALBUMIN/GLOBULIN RATIO 1.2 (1.0-1.7); CALCIUM 8.8 mg/dL (8.5-10.1); CREATININE 1.2 mg/dL (0.6-1.0); GFR 44.2; MAGNESIUM 2.6 mg/dL (1.8-2.4); TOTAL BILIRUBIN 0.4 mg/dL (0.2-1.0); TOTAL PROTEIN 6.1 g/dL (6.4-8.2)
[2019-11-27] MEDS ORDERED: BISACODYL 10 MG SUPP.RECT PR PRN (10:00)
[2019-11-27 11:33] LABS: THYROID STIM HORMONE (TSH) 0.732 uIU/mL (0.358-3.740)
[2019-11-27 15:47] VITALS: BP 125/75
--- NOTE | 2019-11-27 18:24 | NUR ---
Pt up adl in room. Has been slightly more anxious and was on the verge of tears at one point. Pt assisted with getting the gopal and changing her choice of books. Has been compliant with meds and cares.
[2019-11-27] MEDS: QUEtiapine 50 MG TABLET. PO SCH (20:53)
--- NOTE | 2019-11-27 21:52 | PDOC ---
Exam Note: Lyle Note: Please also refer to the separate dictated note~for this date of service dictated separately.~Patient seen individually. Discussed the patient with Nursing staff reviewed the chart.~Reviewed interim history and current functioning. Reviewed vital signs,~Labs/ Radiology~and current medications noted below. Continue current treatment with the changes noted in the dictated addendum note Assessment: Vital Signs/I&O: Vital Signs Date Time Temp Pulse Resp B/P (MAP) Pulse Ox O2 Delivery O2 Flow Rate FiO2 11/27/19 20:54 67 125/75 11/27/19 15:47 97.9 20 97 11/26/19 15:00 Room Air I & O 11/26/19 11/26/19 11/27/19 15:00 23:00 07:00 Intake Total 740 ml Balance 740 ml Labs: Laboratory Tests Test 11/27/19 08:00 11/27/19 08:13 11/27/19 19:36 White Blood Count 7.0 x10^3/uL (4.0-11.0) Red Blood Count 4.74 x10^6/uL (3.50-5.40) Hemoglobin 13.3 g/dL (12.0-15.5) Hematocrit 41.1 % (36.0-47.0) Mean Corpuscular Volume 87 fL (79-100) Mean Corpuscular Hemoglobin 28 pg (25-35) Mean Corpuscular Hemoglobin Concent 32 g/dL (31-37) Red Cell Distribution Width 14.1 % (11.5-14.5) Platelet Count 241 x10^3/uL (140-400) Neutrophils (%) (Auto) 53 % (31-73) Lymphocytes (%) (Auto) 37 % (24-48) Monocytes (%) (Auto) 7 % (0-9) Eosinophils (%) (Auto) 2 % (0-3) Basophils (%) (Auto) 1 % (0-3) Neutrophils # (Auto) 3.7 x10^3uL (1.8-7.7) Lymphocytes # (Auto) 2.6 x10^3/uL (1.0-4.8) Monocytes # (Auto) 0.5 x10^3/uL (0.0-1.1) Eosinophils # (Auto) 0.2 x10^3/uL (0.0-0.7) Basophils # (Auto) 0.1 x10^3/uL (0.0-0.2) D-Dimer (Wanda) 0.39 mg/L (0.00-0.50) Sodium Level 137 mmol/L (136-145) Potassium Level 4.0 mmol/L (3.5-5.1) Chloride Level 101 mmol/L (98-107) Carbon Dioxide Level 29 mmol/L (21-32) Anion Gap 7 (6-14) Blood Urea Nitrogen 27 mg/dL (7-20) H Creatinine 1.2 mg/dL (0.6-1.0) H Estimated GFR (Cockcroft-Gault) 44.2 BUN/Creatinine Ratio 23 (6-20) H Glucose Level 182 mg/dL (70-99) H Calcium Level 8.8 mg/dL (8.5-10.1) Magnesium Level 2.6 mg/dL (1.8-2.4) H Iron Level 62 ug/dL (50-170) Total Iron Binding Capacity 249 ug/dL (250-450) L Iron Saturation 25 % (15-34) Total Bilirubin 0.4 mg/dL (0.2-1.0) Aspartate Amino Transferase (AST) 9 U/L (15-37) L Alanine Aminotransferase (ALT) 18 U/L (14-59) Alkaline Phosphatase 87 U/L (46-116) Total Protein 6.1 g/dL (6.4-8.2) L Albumin 3.3 g/dL (3.4-5.0) L Albumin/Globulin Ratio 1.2 (1.0-1.7) Triglycerides Level 227 mg/dL (0-150) H Cholesterol Level 229 mg/dL (0-200) H LDL Cholesterol, Calculated 140 mg/dL (0-100) H VLDL Cholesterol, Calculated 45 mg/dL (0-40) H Non-HDL Cholesterol Calculated 185 mg/dL (0-129) H HDL Cholesterol 44 mg/dL (40-60) Cholesterol/HDL Ratio 5.0 Thyroid Stimulating Hormone (TSH) 0.732 uIU/mL (0.358-3.740) Glucose (Fingerstick) 178 mg/dL (70-99) H 268 mg/dL (70-99) H Current Medications: Meds: Current Medications Medications (Trade) Dose Ordered Sig/Velia Route PRN Reason Start Time Stop Time Status Last Admin Dose Admin Allopurinol (Zyloprim) 100 mg DAILY PO 11/27/19 09:00 11/27/19 08:13 Clopidogrel Bisulfate (Plavix) 75 mg DAILY PO 11/27/19 09:00 11/27/19 08:13 Duloxetine HCl (Cymbalta) 60 mg DAILY PO 11/27/19 09:00 11/27/19 08:12 Lisinopril (Prinivil) 20 mg DAILY PO 11/27/19 09:00 11/27/19 08:13 Meloxicam (Mobic) 15 mg DAILY PO 11/27/19 09:00 11/27/19 08:13 Memantine (Namenda) 5 mg DAILY PO 11/27/19 09:00 11/27/19 08:13 Pantoprazole Sodium (Protonix) 40 mg DAILY PO 11/27/19 09:00 11/27/19 08:13 Prednisone (Prednisone) 20 mg DAILY PO 11/27/19 09:00 11/27/19 08:12 Tramadol HCl (Ultram) 50 mg DAILY PO 11/27/19 09:00 11/27/19 08:12 Insulin Glargine (Lantus Syringe) 20 unit DAILY08 SQ 11/27/19 08:00 11/27/19 08:00 Bisacodyl (Dulcolax Supp) 10 mg PRN DAILY PRN [place] CONSTIPATION 11/27/19 10:00 11/27/19 10:26 I have reviewed the current psychotropics carefully including drug interactions. Risk benefit ratio favors no change other than as noted in my dictated progress note. Diagnosis: Problems: (1) Impulse control disorder, unspecified (2) Mild cognitive impairment (3) Anxiety disorder, unspecified (4) MDD (major depressive disorder) ARIS MONTES MD Nov 27, 2019 21:52
--- NOTE | 2019-11-27 23:38 | NUR ---
Pt located in her room this evening. Pt calm, pleasant and cooperative. Pt has been reading magazines and listening to the gopal. Pt states that she is feeling "clearer" today. Compliant with whole medications. Denies SI.
[2019-11-28 00:06] LABS: HEMOGLOBIN A1C 8.2 % (4.8-5.6)
--- NOTE | 2019-11-28 01:09 | NUR ---
Pt pleasant with initial interaction, agreed to protein for snack. Requested peanut butter but accepted yogurt. Pt was using [employer] watching videos, requested to watch [employer]. No hospital account was signed in, unable to fulfill pt request. Pt enjoyed talking with me, was watching a video about trains and stated " my and I rode one of the new trains while we were in [place]." Pt appeared happy to share the memory with me. Pt prepared self for bed after returning tablet to me.
[2019-11-28 03:07] LABS: THYROXINE 5.9 ug/dL (4.5-12.0)
[2019-11-28] MEDS: metroNIDAZOLE 500 MG TABLET PO SCH ×3 (05:06→20:53)
[2019-11-28 05:53] VITALS: BP 118/62
--- NOTE | 2019-11-28 06:49 | PDOC ---
Exam Note: Lyle Note: This note is a late entry for 11/27/2019 covers elements not covered in my initial note. Subjective: The patient was reviewed on telehealth rounds in the evening of 11/27/2019 with Bruna MOY. Discussed with nursing staff, reviewed the chart. The patient has been doing better, less anxious, less tearful and she is very appreciative of her improvement. She states she wants to return home. We will discuss this with her family. 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 Review of Systems: No CV, , pulmonary, eye system symptoms on review. Mental Status Exam: Reasonably oriented. Speech is coherent. Abstraction fair. Computation impaired. Language function intact. Mood and affect is improved. Laboratory Data: Reviewed. Impression: Major depressive disorder recurrent. Anxiety disorder unspecified. Mild cognitive impairment. Impulse control disorder unspecified. Plan: No change from initial note. Assessment: Vital Signs/I&O: Vital Signs Date Time Temp Pulse Resp B/P (MAP) Pulse Ox O2 Delivery O2 Flow Rate FiO2 11/28/19 05:53 98.1 59 18 118/62 (80) 98 11/26/19 15:00 Room Air I & O 11/27/19 11/27/19 11/28/19 15:00 23:00 07:00 Intake Total 720 ml 360 ml 120 ml Balance 720 ml 360 ml 120 ml Labs: Laboratory Tests Test 11/27/19 08:00 11/27/19 08:13 11/27/19 19:36 White Blood Count 7.0 x10^3/uL (4.0-11.0) Red Blood Count 4.74 x10^6/uL (3.50-5.40) Hemoglobin 13.3 g/dL (12.0-15.5) Hematocrit 41.1 % (36.0-47.0) Mean Corpuscular Volume 87 fL (79-100) Mean Corpuscular Hemoglobin 28 pg (25-35) Mean Corpuscular Hemoglobin Concent 32 g/dL (31-37) Red Cell Distribution Width 14.1 % (11.5-14.5) Platelet Count 241 x10^3/uL (140-400) Neutrophils (%) (Auto) 53 % (31-73) Lymphocytes (%) (Auto) 37 % (24-48) Monocytes (%) (Auto) 7 % (0-9) Eosinophils (%) (Auto) 2 % (0-3) Basophils (%) (Auto) 1 % (0-3) Neutrophils # (Auto) 3.7 x10^3uL (1.8-7.7) Lymphocytes # (Auto) 2.6 x10^3/uL (1.0-4.8) Monocytes # (Auto) 0.5 x10^3/uL (0.0-1.1) Eosinophils # (Auto) 0.2 x10^3/uL (0.0-0.7) Basophils # (Auto) 0.1 x10^3/uL (0.0-0.2) D-Dimer (Wanda) 0.39 mg/L (0.00-0.50) Sodium Level 137 mmol/L (136-145) Potassium Level 4.0 mmol/L (3.5-5.1) Chloride Level 101 mmol/L (98-107) Carbon Dioxide Level 29 mmol/L (21-32) Anion Gap 7 (6-14) Blood Urea Nitrogen 27 mg/dL (7-20) H Creatinine 1.2 mg/dL (0.6-1.0) H Estimated GFR (Cockcroft-Gault) 44.2 BUN/Creatinine Ratio 23 (6-20) H Glucose Level 182 mg/dL (70-99) H Hemoglobin A1c 8.2 % (4.8-5.6) H Calcium Level 8.8 mg/dL (8.5-10.1) Magnesium Level 2.6 mg/dL (1.8-2.4) H Iron Level 62 ug/dL (50-170) Total Iron Binding Capacity 249 ug/dL (250-450) L Iron Saturation 25 % (15-34) Total Bilirubin 0.4 mg/dL (0.2-1.0) Aspartate Amino Transferase (AST) 9 U/L (15-37) L Alanine Aminotransferase (ALT) 18 U/L (14-59) Alkaline Phosphatase 87 U/L (46-116) Total Protein 6.1 g/dL (6.4-8.2) L Albumin 3.3 g/dL (3.4-5.0) L Albumin/Globulin Ratio 1.2 (1.0-1.7) Triglycerides Level 227 mg/dL (0-150) H Cholesterol Level 229 mg/dL (0-200) H LDL Cholesterol, Calculated 140 mg/dL (0-100) H VLDL Cholesterol, Calculated 45 mg/dL (0-40) H Non-HDL Cholesterol Calculated 185 mg/dL (0-129) H HDL Cholesterol 44 mg/dL (40-60) Cholesterol/HDL Ratio 5.0 Thyroid Stimulating Hormone (TSH) 0.732 uIU/mL (0.358-3.740) Thyroxine (T4) 5.9 ug/dL (4.5-12.0) Total Triiodothyronine (TT3) 42 ng/dL (71-180) L Glucose (Fingerstick) 178 mg/dL (70-99) H 268 mg/dL (70-99) H Current Medications: Meds: Current Medications Medications (Trade) Dose Ordered Sig/Velia Route PRN Reason Start Time Stop Time Status Last Admin Dose Admin Allopurinol (Zyloprim) 100 mg DAILY PO 11/27/19 09:00 11/27/19 08:13 Clopidogrel Bisulfate (Plavix) 75 mg DAILY PO 11/27/19 09:00 11/27/19 08:13 Duloxetine HCl (Cymbalta) 60 mg DAILY PO 11/27/19 09:00 11/27/19 08:12 Lisinopril (Prinivil) 20 mg DAILY PO 11/27/19 09:00 11/27/19 08:13 Meloxicam (Mobic) 15 mg DAILY PO 11/27/19 09:00 11/27/19 08:13 Memantine (Namenda) 5 mg DAILY PO 11/27/19 09:00 11/27/19 08:13 Pantoprazole Sodium (Protonix) 40 mg DAILY PO 11/27/19 09:00 11/27/19 08:13 Prednisone (Prednisone) 20 mg DAILY PO 11/27/19 09:00 11/27/19 08:12 Tramadol HCl (Ultram) 50 mg DAILY PO 11/27/19 09:00 11/27/19 08:12 Insulin Glargine (Lantus Syringe) 20 unit DAILY08 SQ 11/27/19 08:00 11/27/19 08:00 Bisacodyl (Dulcolax Supp) 10 mg PRN DAILY PRN VT CONSTIPATION 10/3/20 10:00 11/27/19 10:26 I have reviewed the current psychotropics carefully including drug interactions. Risk benefit ratio favors no change other than as noted in my dictated progress note. Diagnosis: Problems: (1) Impulse control disorder, unspecified (2) Mild cognitive impairment (3) Anxiety disorder, unspecified (4) MDD (major depressive disorder) ARIS MONTES MD Nov 28, 2019 06:49
[2019-11-28] MEDS: PROPRANOLOL 20 MG TABLET. PO SCH ×2 (09:23→20:55)
[2019-11-28] MEDS: GABAPENTIN 300 MG CAPSULE. PO SCH ×3 (09:23→20:53)
[2019-11-28] MEDS: metFORMIN 500 MG TABLET PO SCH ×2 (09:23→17:16)
[2019-11-28] MEDS: MEMANTINE 5 MG TABLET. PO SCH (09:23)
[2019-11-28] MEDS: CLOPIDOGREL BISULFATE 75 MG TABLET PO SCH (09:23)
[2019-11-28] MEDS: DULoxetine HCL 60 MG CAPSULE.DR PO SCH (09:23)
[2019-11-28] MEDS: MELOXICAM 15 MG TABLET. PO SCH (09:23)
[2019-11-28] MEDS: POLYETHYLENE GLYCOL 3350 17 GM PACKET. PO SCH (09:23)
[2019-11-28] MEDS: ALLOPURINOL 100 MG TABLET. PO SCH (09:24)
[2019-11-28] MEDS: PANTOPRAZOLE 40 MG TABLET. PO SCH (09:24)
[2019-11-28] MEDS: LISINOPRIL 20 MG TABLET PO SCH (09:24)
[2019-11-28] MEDS: traMADol 50 MG TABLET PO SCH (09:24)
[2019-11-28] MEDS: predniSONE 20 MG TABLET PO SCH (09:24)
[2019-11-28] MEDS: ALPRAZolam 0.25 MG TABLET PO SCH ×3 (09:24→20:53)
[2019-11-28] MEDS: INSULIN GLARGINE SYRINGE. SQ SCH (09:27)
--- NOTE | 2019-11-28 10:30 | NUR ---
Patient complaint with cares. Patient requested to shower once a week and she will do bed baths on herself other gonzalez.
[2019-11-28 16:23] VITALS: BP 130/75
[2019-11-28] MEDS: QUEtiapine 50 MG TABLET. PO SCH (20:53)
--- NOTE | 2019-11-28 22:09 | PDOC ---
Exam Note: Lyle Note: Please also refer to the separate dictated note~for this date of service dictated separately.~Patient seen individually. Discussed the patient with Nursing staff reviewed the chart.~Reviewed interim history and current functioning. Reviewed vital signs,~Labs/ Radiology~and current medications noted below. Continue current treatment with the changes noted in the dictated addendum note Assessment: Vital Signs/I&O: Vital Signs Date Time Temp Pulse Resp B/P (MAP) Pulse Ox O2 Delivery O2 Flow Rate FiO2 11/28/19 20:55 73 130/75 11/28/19 16:23 97.7 16 95 11/28/19 10:25 Room Air I & O 11/27/19 11/27/19 11/28/19 15:00 23:00 07:00 Intake Total 720 ml 360 ml 120 ml Balance 720 ml 360 ml 120 ml Labs: Laboratory Tests Test 11/28/19 07:52 11/28/19 21:02 Glucose (Fingerstick) 174 mg/dL (70-99) H 273 mg/dL (70-99) H Current Medications: Meds: Current Medications Medications (Trade) Dose Ordered Sig/Velia Route PRN Reason Start Time Stop Time Status Last Admin Dose Admin Polyethylene Glycol (miraLAX) 17 gm DAILY PO 11/28/19 09:00 11/28/19 09:23 I have reviewed the current psychotropics carefully including drug interactions. Risk benefit ratio favors no change other than as noted in my dictated progress note. Diagnosis: Problems: (1) Impulse control disorder, unspecified (2) Mild cognitive impairment (3) Anxiety disorder, unspecified (4) MDD (major depressive disorder) ARIS MONTES MD Nov 28, 2019 22:09
--- NOTE | 2019-11-29 00:22 | NUR ---
Nursing Note Pt states that she has made a 180 degree turn in the right direction. She sates that she is now feeling like the fog has lifted from her brain and that she can think clearly and understands concepts. Pt sates she is in a much better place than when she arrived, that she is in a much better place emotionally than she has been in months. States that she has much better focus and comprehension than recently. States she spoke with her kids today and that she feels supported and loved. States she has had tremendous turn around and is ready to get better.
[2019-11-29 06:26] VITALS: BP 91/55
--- NOTE | 2019-11-29 06:46 | PDOC ---
Exam Note: Lyle Note: This note is a late entry for 11/28/2019 covers elements not covered in my initial note. Subjective: The patient was reviewed on telehealth rounds in the evening of 11/28/2019 with Dao MOY. Discussed with nursing staff, reviewed the chart. Per Dao MOY, she slept 7-1/4 hours. She has had great day according to the nursing staff. She has been verbal, appropriate, has talked to her adult children over the phone and very pleased with how she is doing. Review of Systems: No CV, , pulmonary, eye system symptoms on review. Mental Status Exam: Reasonably oriented. Speech is coherent, very verbal and interactive. Abstraction is fair. Computation impaired. Language function is intact. Mood and affect is improved, less anxious. Laboratory Data: Reviewed. Impression: Major depressive disorder recurrent. Anxiety disorder unspecified. Mild cognitive impairment. Impulse control disorder unspecified. Plan: No change from initial note. Assessment: Vital Signs/I&O: Vital Signs Date Time Temp Pulse Resp B/P (MAP) Pulse Ox O2 Delivery O2 Flow Rate FiO2 11/29/19 06:26 97.8 64 14 91/55 (67) 97 11/28/19 10:25 Room Air I & O 11/28/19 11/28/19 11/29/19 15:00 23:00 07:00 Intake Total 600 ml 440 ml Balance 600 ml 440 ml Labs: Laboratory Tests Test 11/28/19 07:52 11/28/19 21:02 Glucose (Fingerstick) 174 mg/dL (70-99) H 273 mg/dL (70-99) H Current Medications: Meds: Current Medications Medications (Trade) Dose Ordered Sig/Velia Route PRN Reason Start Time Stop Time Status Last Admin Dose Admin Polyethylene Glycol (miraLAX) 17 gm DAILY PO 11/28/19 09:00 11/28/19 09:23 I have reviewed the current psychotropics carefully including drug interactions. Risk benefit ratio favors no change other than as noted in my dictated progress note. Diagnosis: Problems: (1) Impulse control disorder, unspecified (2) Mild cognitive impairment (3) Anxiety disorder, unspecified (4) MDD (major depressive disorder) ARIS MONTES MD Nov 29, 2019 06:46
[2019-11-29] MEDS: predniSONE 20 MG TABLET PO SCH (09:00)
[2019-11-29] MEDS: LISINOPRIL 20 MG TABLET PO SCH (09:00)
[2019-11-29] MEDS: PROPRANOLOL 20 MG TABLET. PO SCH ×2 (09:00→19:51)
[2019-11-29] MEDS: metFORMIN 500 MG TABLET PO SCH ×2 (09:36→17:06)
[2019-11-29] MEDS: INSULIN GLARGINE SYRINGE. SQ SCH (09:37)
[2019-11-29] MEDS: POLYETHYLENE GLYCOL 3350 17 GM PACKET. PO SCH (09:39)
[2019-11-29] MEDS: MELOXICAM 15 MG TABLET. PO SCH (09:39)
[2019-11-29] MEDS: DULoxetine HCL 60 MG CAPSULE.DR PO SCH (09:39)
[2019-11-29] MEDS: GABAPENTIN 300 MG CAPSULE. PO SCH ×3 (09:39→19:48)
[2019-11-29] MEDS: MEMANTINE 5 MG TABLET. PO SCH (09:39)
[2019-11-29] MEDS: CLOPIDOGREL BISULFATE 75 MG TABLET PO SCH (09:40)
[2019-11-29] MEDS: PANTOPRAZOLE 40 MG TABLET. PO SCH (09:40)
[2019-11-29] MEDS: ALLOPURINOL 100 MG TABLET. PO SCH (09:41)
[2019-11-29] MEDS: traMADol 50 MG TABLET PO SCH (09:43)
[2019-11-29] MEDS: ALPRAZolam 0.25 MG TABLET PO SCH ×3 (09:43→19:51)
--- NOTE | 2019-11-29 10:04 | EKG ---
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
--- NOTE | 2019-11-29 11:40 | NUR ---
JORDEN contacted pt dtr to go over treatment team and to get pt dtr, Taylor perspective. Pt dtr reports that her father highly shielded pt from things for many years. Pt reports her father being a stoic but was a loving and caring father/. Pt daughter feels that pt always had a different view from the family. Pt manipulates to get her way and when she doesn't she uses terms like "you don't love me" or "you just want my money". Pt dtr reports pt being "over the top" and understands pt grieving; but feels it's dramatic grief. "My father had this fight for 12 years. This whole time my father did all the grocery shopping, driving her to [employer], cooking, managed money and the medications while fighting for his life. And I feel that without my father being around, she is no longer shielded and she's not doing well". Taylor reports that her brother has nothing to do with pt, but if Taylor doesn't answer her phone or do something right away, pt would show up at her work or constantly call her phone until she could pick up operator. "She's even called people in town to see if they have seen me". Pt dtr continues to report that pt went into early [facility] due to her mental health issues. She blames the division traffic superintendent for this and has little insight that she had to retire because she was causing trouble for the school district. Pt get super combative (verbally) when she hears the superintendents name in conversation. Pt dtr also mentioned that pt, after the of her , quit eating, would lose things, completely didn't pay bill and Taylor had to step in to get them caught up. Pt mentioned [facility] and not being able to make it in which pt was taken to [place] and spent 37 days inpt; which included having the law enforcement officers help. JORDEN questioned where pt lived prior to [facility] and pt dtr reports that pt lived in [place] with her Dad for many years. JORDEN mentioned going home to [place], [place] and pt dtr laughed stating, she hasn't been to [place] in over 15 years. The have a farm there and her brother moved there to care for the farm and do all the work since pt started falling ill. Pt currently has a house in [place] that sits on 6 acres, 4 bedroom, 4 bathroom and pt cannot handle any of the maintenance work. Pt dtr reports that pt has a considerable amount of assets and has been not just well educated but well traveled. Pt dtr just wants pt to work towards not crying as much and working on her depression. Pt dtr reports that pt will go back to [facility] once stable and hopes that they can maintain her there over time.
--- NOTE | 2019-11-29 13:53 | NUR ---
ACTIVITY THERAPY ASSESSMENT completed based on notes, observation, and interview. Pt was laying in bed reading a book. Pt was tearful but calm and pleasant. Pt was to her for 47 years. Pt May of this year and pt is struggling to cope with his . Pt has a daughter and son that she is still in contact with. Pt said that her fought cancer. Pt reports that her children were concerned about her and thought that she might hurt herself. AT asked if she has figured out a way to cope with her husbands and she said she had not. Pt mentioned she was upset about her wedding ring being taken. AT explained the protocol for the hospital and how it applies to all patients on our unit. Pt said that staff members were holden with her when trying to take her ring. Pt then asked AT why she was being nice. AT asked what she meant and she explained that AT's tone of voice was pleasant and nice.Pt said that she graduated college in 1968. 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 Pt mentioned that she was in a mcfp and she has made some friends but 'everybody's .' Pt said that many of her friends and family have passed on. AT asked pt if she is a member of any groups and pt said that she attends a grief support group once a month but she needs more than that. Pt mentioned her ring multiple times throughout assessment. AT asked if she would like for AT ask about the possibility of a silicone ring. Pt said that she would like to something to physically touch. Pt constantly touched ring finger throughout interview. Pt was tearful and upset and said ' I would love to be a bird and fly away from all of this. Pt reports that when she lived at home all she saw was her . Pt said that she has a yorkie called Foxy Lady. Pt said that is was very special for her and her to attend [employer] together but she doesn't believe in the anti-hurley rules their [employer] currently has. Pt mentions that she doesn't have the drive she use to. AT asked what use to make her motivated. Pt said that she is a proud [place] and where she came from. AT explained that we will help her find ways to become motivated and get her back to her baseline. Pt asked AT what the lesson plan is. AT explained that they will work together to create her a lesson plan on getting back to her baseline. Initial goal aimed to increase self-esteem development, socialization, and motivation skills. Pt will participate in at least three Activity Therapy group sessions per week Addendum: 11/29/19 at 1354 by MARSHA ESTEVEZ ACT assessment time at 1200
--- NOTE | 2019-11-29 13:55 | NUR ---
Pt is calm, cooperative, and compliant with her medication and assessment. Pt was tearful when talking about her . Pt asked to give herself her daily lantus injection, nurse would not let her informing her of hospital policy pt stated "all of the other nurses would let me why won't you. Are they more lax with us on the weekends?" Nurse redirected pt. Nurse observed a wedding band on the pts finger and explained hospital policy to pt and removal of jewerly pt became angry. When nurse attempted to validate pts feelings and offer emotional support pt stated "youre not sorry he ." Pt was compliant with unit policy, safe ticket issued to pt. Redirection and emotional support offered to pt.
[2019-11-29 15:48] VITALS: BP 153/73
[2019-11-29] MEDS: QUEtiapine 50 MG TABLET. PO SCH (19:50)
[2019-11-29] MEDS: traMADol 50 MG TABLET PO PRN (20:55)
--- NOTE | 2019-11-29 21:59 | PDOC ---
Exam Note: Lyle Note: Please also refer to the separate dictated note~for this date of service dictated separately.~Patient seen individually. Discussed the patient with Nursing staff reviewed the chart.~Reviewed interim history and current functioning. Reviewed vital signs,~Labs/ Radiology~and current medications noted below. Continue current treatment with the changes noted in the dictated addendum note Assessment: Vital Signs/I&O: Vital Signs Date Time Temp Pulse Resp B/P (MAP) Pulse Ox O2 Delivery O2 Flow Rate FiO2 11/29/19 20:55 96 11/29/19 19:51 77 153/73 11/29/19 15:48 97.8 18 11/28/19 10:25 Room Air I & O 11/28/19 11/28/19 11/29/19 15:00 23:00 07:00 Intake Total 600 ml 440 ml Balance 600 ml 440 ml Labs: Laboratory Tests Test 11/29/19 08:21 11/29/19 16:58 11/29/19 19:40 Glucose (Fingerstick) 173 mg/dL (70-99) H 204 mg/dL (70-99) H 205 mg/dL (70-99) H Current Medications: Meds: Current Medications Medications (Trade) Dose Ordered Sig/Velia Route PRN Reason Start Time Stop Time Status Last Admin Dose Admin Quetiapine Fumarate (SEROquel) 75 mg HS PO 11/29/19 21:00 11/29/19 19:50 I have reviewed the current psychotropics carefully including drug interactions. Risk benefit ratio favors no change other than as noted in my dictated progress note. Diagnosis: Problems: (1) Impulse control disorder, unspecified (2) Mild cognitive impairment (3) Anxiety disorder, unspecified (4) MDD (major depressive disorder) ARIS MONTES MD Nov 29, 2019 21:59
[2019-11-30 06:27] VITALS: BP 114/68
[2019-11-30] MEDS: MEMANTINE 5 MG TABLET. PO SCH (08:52)
[2019-11-30] MEDS: CLOPIDOGREL BISULFATE 75 MG TABLET PO SCH (08:52)
[2019-11-30] MEDS: predniSONE 20 MG TABLET PO SCH (08:52)
[2019-11-30] MEDS: LISINOPRIL 20 MG TABLET PO SCH (08:53)
[2019-11-30] MEDS: GABAPENTIN 300 MG CAPSULE. PO SCH ×3 (08:53→21:02)
[2019-11-30] MEDS: PROPRANOLOL 20 MG TABLET. PO SCH ×2 (08:54→21:02)
[2019-11-30] MEDS: metFORMIN 500 MG TABLET PO SCH ×2 (08:54→17:45)
[2019-11-30] MEDS: ALLOPURINOL 100 MG TABLET. PO SCH (08:55)
[2019-11-30] MEDS: MELOXICAM 15 MG TABLET. PO SCH (08:55)
[2019-11-30] MEDS: PANTOPRAZOLE 40 MG TABLET. PO SCH (08:55)
[2019-11-30] MEDS: traMADol 50 MG TABLET PO SCH (08:55)
[2019-11-30] MEDS: ALPRAZolam 0.25 MG TABLET PO SCH ×3 (08:55→21:02)
[2019-11-30] MEDS: DULoxetine HCL 60 MG CAPSULE.DR PO SCH (08:55)
[2019-11-30] MEDS: POLYETHYLENE GLYCOL 3350 17 GM PACKET. PO SCH (08:56)
[2019-11-30] MEDS: INSULIN GLARGINE SYRINGE. SQ SCH (08:59)
[2019-11-30] MEDS: traMADol 50 MG TABLET PO PRN (12:52)
--- NOTE | 2019-11-30 15:45 | NUR ---
Patient has been withdrawn, depressed, and cooperative for the majority of this shift. Patient complained of HOPKINS and lower back pain after lunch; prn and scheduled medications provided per eMAR. Patient took a nap after lunch; she is currently sitting up in her room reading the newspaper. Will continue to monitor and report to oncoming shift.
[2019-11-30 16:05] VITALS: BP 128/68
--- NOTE | 2019-11-30 19:47 | NUR ---
Dr LUIS called re 347 glucose. Order for 15 u regular insulin received.
[2019-11-30] MEDS ORDERED: INSULIN LISPRO 300 UNITS/3 ML VIAL. SQ ONE (20:00)
[2019-11-30] MEDS: QUEtiapine 50 MG TABLET. PO SCH (21:03)
--- NOTE | 2019-11-30 21:44 | PDOC ---
Exam Note: Lyle Note: Please also refer to the separate dictated note~for this date of service dictated separately.~Patient seen individually. Discussed the patient with Nursing staff reviewed the chart.~Reviewed interim history and current functioning. Reviewed vital signs,~Labs/ Radiology~and current medications noted below. Continue current treatment with the changes noted in the dictated addendum note Assessment: Vital Signs/I&O: Vital Signs Date Time Temp Pulse Resp B/P (MAP) Pulse Ox O2 Delivery O2 Flow Rate FiO2 11/30/19 21:02 67 128/68 11/30/19 16:05 97.4 18 98 11/30/19 14:00 Room Air I & O 11/29/19 11/29/19 11/30/19 15:00 23:00 07:00 Intake Total 916 ml 480 ml Balance 916 ml 480 ml Labs: Laboratory Tests Test 11/30/19 07:39 11/30/19 19:01 Glucose (Fingerstick) 171 mg/dL (70-99) H 347 mg/dL (70-99) H Current Medications: Meds: Current Medications Medications (Trade) Dose Ordered Sig/Velia Route PRN Reason Start Time Stop Time Status Last Admin Dose Admin Insulin Human Lispro (HumaLOG) 15 units 1X ONCE SQ 11/30/19 20:00 11/30/19 20:01 DC 11/30/19 21:04 I have reviewed the current psychotropics carefully including drug interactions. Risk benefit ratio favors no change other than as noted in my dictated progress note. Diagnosis: Problems: (1) Impulse control disorder, unspecified (2) Mild cognitive impairment (3) Anxiety disorder, unspecified (4) MDD (major depressive disorder) ARIS MONTES MD Nov 30, 2019 21:44
--- NOTE | 2019-11-30 22:43 | NUR ---
When pt informed of 15 u insulin dose for 347 mg/dl glucose she felt 15 u was too much insulin for her. She felt 6 units was a more appropriate dose so that is what she took. Remainder of meds taken whole without difficulty. She reported that she is feeling better now and feels the meds are helping.
[2019-12-01 06:03] VITALS: BP 92/53
--- NOTE | 2019-12-01 07:01 | PDOC ---
Exam Note: Lyle Note: This note is a late entry for 11/29/2019 covers elements not covered in my initial note. Subjective: The patient was reviewed on telehealth rounds in the morning for treatment team meeting of 11/29/2019 with Heather, social service staff and Onelia MOY. Discussed with nursing staff, reviewed the chart. The patient was also reviewed on telehealth rounds in the evening. She slept 7-1/2 hours previous night. We reviewed her history at length in treatment team meeting. Appetite is 75%. She has been anxious, manipulative at times having somewhat of a conflict with some of the nursing staff members and this worsens her mood lability. Review of Systems: No CV, , pulmonary, eye system symptoms on review. Mental Status Exam: Reasonably oriented. Speech is coherent, at times pressured. Abstraction is fair. Computation impaired. Language function is intact. Mood and affect is somewhat anxious, labile, quite tearful during the individual visit on telehealth rounds. Laboratory Data: Reviewed. Impression: Major depressive disorder recurrent. Anxiety disorder unspecified. Mild cognitive impairment. Impulse control disorder unspecified. Plan: Increase night time Seroquel from 50 mg to 75 mg. Rest unchanged. Assessment: Vital Signs/I&O: Vital Signs Date Time Temp Pulse Resp B/P (MAP) Pulse Ox O2 Delivery O2 Flow Rate FiO2 12/01/19 06:03 97.3 66 18 92/53 (66) 95 11/30/19 14:00 Room Air I & O 11/30/19 11/30/19 12/01/19 15:00 23:00 07:00 Intake Total 796 ml 236 ml 240 ml Balance 796 ml 236 ml 240 ml Labs: Laboratory Tests Test 11/30/19 07:39 11/30/19 19:01 Glucose (Fingerstick) 171 mg/dL (70-99) H 347 mg/dL (70-99) H Current Medications: Meds: Current Medications Medications (Trade) Dose Ordered Sig/Velia Route PRN Reason Start Time Stop Time Status Last Admin Dose Admin Insulin Human Lispro (HumaLOG) 15 units 1X ONCE SQ 11/30/19 20:00 11/30/19 20:01 DC 11/30/19 21:04 I have reviewed the current psychotropics carefully including drug interactions. Risk benefit ratio favors no change other than as noted in my dictated progress note. Diagnosis: Problems: (1) Impulse control disorder, unspecified (2) Mild cognitive impairment (3) Anxiety disorder, unspecified (4) MDD (major depressive disorder) ARIS MONTES MD Dec 01, 2019 07:01
--- NOTE | 2019-12-01 07:10 | PDOC ---
Exam Note: Lyle Note: Please also refer to the separate dictated note~for this date of service dictated separately.~Patient seen individually. Discussed the patient with Nursing staff reviewed the chart.~Reviewed interim history and current functioning. Reviewed vital signs,~Labs/ Radiology~and current medications noted below. Continue current treatment with the changes noted in the dictated addendum note Assessment: Vital Signs/I&O: Vital Signs Date Time Temp Pulse Resp B/P (MAP) Pulse Ox O2 Delivery O2 Flow Rate FiO2 12/01/19 06:03 97.3 66 18 92/53 (66) 95 11/30/19 14:00 Room Air I & O 11/30/19 11/30/19 12/01/19 15:00 23:00 07:00 Intake Total 796 ml 236 ml 240 ml Balance 796 ml 236 ml 240 ml Labs: Laboratory Tests Test 11/30/19 07:39 11/30/19 19:01 Glucose (Fingerstick) 171 mg/dL (70-99) H 347 mg/dL (70-99) H Current Medications: Meds: Current Medications Medications (Trade) Dose Ordered Sig/Velia Route PRN Reason Start Time Stop Time Status Last Admin Dose Admin Insulin Human Lispro (HumaLOG) 15 units 1X ONCE SQ 11/30/19 20:00 11/30/19 20:01 DC 11/30/19 21:04 I have reviewed the current psychotropics carefully including drug interactions. Risk benefit ratio favors no change other than as noted in my dictated progress note. Diagnosis: Problems: (1) Impulse control disorder, unspecified (2) Mild cognitive impairment (3) Anxiety disorder, unspecified (4) MDD (major depressive disorder) ARIS MONTES MD Dec 01, 2019 07:10
[2019-12-01] MEDS: metFORMIN 500 MG TABLET PO SCH ×2 (08:16→17:26)
[2019-12-01] MEDS: INSULIN GLARGINE SYRINGE. SQ SCH (08:41)
[2019-12-01] MEDS: POLYETHYLENE GLYCOL 3350 17 GM PACKET. PO SCH (09:27)
[2019-12-01] MEDS: MELOXICAM 15 MG TABLET. PO SCH (09:28)
[2019-12-01] MEDS: DULoxetine HCL 60 MG CAPSULE.DR PO SCH (09:28)
[2019-12-01] MEDS: traMADol 50 MG TABLET PO SCH (09:28)
[2019-12-01] MEDS: GABAPENTIN 300 MG CAPSULE. PO SCH ×3 (09:28→20:55)
[2019-12-01] MEDS: CLOPIDOGREL BISULFATE 75 MG TABLET PO SCH (09:28)
[2019-12-01] MEDS: ALPRAZolam 0.25 MG TABLET PO SCH ×3 (09:28→20:56)
[2019-12-01] MEDS: MEMANTINE 5 MG TABLET. PO SCH (09:29)
[2019-12-01] MEDS: predniSONE 20 MG TABLET PO SCH (09:29)
[2019-12-01] MEDS: PANTOPRAZOLE 40 MG TABLET. PO SCH (09:29)
[2019-12-01] MEDS: ALLOPURINOL 100 MG TABLET. PO SCH (09:29)
[2019-12-01 09:48] VITALS: BP 100/58
[2019-12-01] MEDS: LISINOPRIL 20 MG TABLET PO SCH (12:52)
[2019-12-01] MEDS: PROPRANOLOL 20 MG TABLET. PO SCH ×2 (12:52→20:58)
--- NOTE | 2019-12-01 13:26 | NUR ---
SW returned call to pt dtr, Taylor, who wanted to double check on SW opinion about the [facility] appointment. SW encouraged pt dtr to reschedule the appointment on her end to avoid any backlash on pt end. Pt dtr and SW discussed how to approach pt as she is manipulative and has behaviors that would suggest a personality disorder. SW explained that the approach for pt is everything. Pt is educated and very smart; she does not wish to be treated as though she is not. It is best for pt and her brother to start a conversation based on how she is doing or to relay news that you know she would appreciate or would want to hear. Once that approach happens, they will then be able to address things with pt in a manner that allows her to feel as though she is in charge and hopefully bypass the manipulation tactics that pt uses. SW and pt dtr discussed pt getting services at the [facility], [place] and [facility]. Pt needs to see a CBT (Cognitive Behavioral Therapist) on a regular basis. SW explained that pt has had this behaviors for most of her adult life and more than likely learned them as a kid. A strong CBT will be able to get pt to change her thoughts/process, which will in turn change her behaviors; however, this will be something that happens over time. SW will continue to follow up with pt family on discharge plans and make all appointments needed for pt once she is able to return to [facility].
--- NOTE | 2019-12-01 14:06 | NUR ---
Patient withdrawn to her room and in bed most of this shift. She has made several complaints about the food and has ordered a hamburger and a "nice salad" for dinner. Staff called kitchen and placed the order. Patient is compliant with medications, she takes them whole. Patient has had low BP this morning. It was also low on recheck. Held lisinopril and propranolol related to this. Patient has participated in a [employer] painting group. She seems to be less attention seeking than earlier this week.
[2019-12-01 15:40] VITALS: BP 125/71
[2019-12-01] MEDS: QUEtiapine 50 MG TABLET. PO SCH (20:56)
--- NOTE | 2019-12-01 22:00 | PDOC ---
Exam Note: Lyle Note: Please also refer to the separate dictated note~for this date of service dictated separately.~Patient seen individually. Discussed the patient with Nursing staff reviewed the chart.~Reviewed interim history and current functioning. Reviewed vital signs,~Labs/ Radiology~and current medications noted below. Continue current treatment with the changes noted in the dictated addendum note Assessment: Vital Signs/I&O: Vital Signs Date Time Temp Pulse Resp B/P (MAP) Pulse Ox O2 Delivery O2 Flow Rate FiO2 12/01/19 20:58 79 125/71 12/01/19 20:55 97.9 98 12/01/19 15:40 18 11/30/19 14:00 Room Air I & O 11/30/19 11/30/19 12/01/19 15:00 23:00 07:00 Intake Total 796 ml 236 ml 240 ml Balance 796 ml 236 ml 240 ml Labs: Laboratory Tests Test 12/01/19 07:46 12/01/19 20:42 Glucose (Fingerstick) 163 mg/dL (70-99) H 250 mg/dL (70-99) H Current Medications: I have reviewed the current psychotropics carefully including drug interactions. Risk benefit ratio favors no change other than as noted in my dictated progress note. Diagnosis: Problems: (1) Impulse control disorder, unspecified (2) Mild cognitive impairment (3) Anxiety disorder, unspecified (4) MDD (major depressive disorder) ARIS MONTES MD Dec 01, 2019 22:00
[2019-12-01] MEDS: traMADol 50 MG TABLET PO PRN (22:08)
--- NOTE | 2019-12-02 01:20 | NUR ---
>Last evening pt sat quietly in her room doing a word search puzzle. She took meds whole without difficulty. PRN Tramadol given for complaint of left hip pain she said she needs a hip replacement. Since meds given pt has been sleeping. She reported feeling much better now than she did on admission and is hopeful for a discharge soon.
[2019-12-02 06:30] VITALS: BP 126/67
--- NOTE | 2019-12-02 07:39 | PDOC ---
Exam Note: Lyle Note: This note is a late entry for 12/01/2019 covers elements not covered in my initial note. Subjective: The patient was reviewed on telehealth rounds in the evening of 12/01/2019 with Char MOY. Discussed with nursing staff, reviewed the chart. She slept 7 hours. Overall the patient has done much better today. During the telehealth rounds, she had many questions about outpatient follow up and we discussed this would be with Ramona Ruvalcaba APRN at the [facility] and Elias Hernandez. She talked about wanting to return home, that she had conversation with her daughter, which was very positive today and we are on the same page. She had many questions about her medications as well which we addressed. Review of Systems: No CV, , pulmonary, eye system symptoms on review. Mental Status Exam: Reasonably oriented. Speech is coherent. Abstraction is fair. Computation impaired. Language function is intact. Mood and affect is improved, less anxious, labile. Laboratory Data: Reviewed. Impression: Major depressive disorder recurrent. Anxiety disorder unspecified. Mild cognitive impairment. Impulse control disorder unspecified. Plan: No change from initial note. We will adjust Seroquel further as clinically indicated. Continue Cymbalta. Assessment: Vital Signs/I&O: Vital Signs Date Time Temp Pulse Resp B/P (MAP) Pulse Ox O2 Delivery O2 Flow Rate FiO2 12/02/19 06:30 97.5 65 16 126/67 (86) 94 Room Air I & O 12/01/19 12/01/19 12/02/19 15:00 23:00 07:00 Intake Total 360 ml 600 ml Balance 360 ml 600 ml Labs: Laboratory Tests Test 12/01/19 07:46 12/01/19 20:42 12/02/19 07:35 Glucose (Fingerstick) 163 mg/dL (70-99) H 250 mg/dL (70-99) H 127 mg/dL (70-99) H Current Medications: I have reviewed the current psychotropics carefully including drug interactions. Risk benefit ratio favors no change other than as noted in my dictated progress note. Diagnosis: Problems: (1) Impulse control disorder, unspecified (2) Mild cognitive impairment (3) Anxiety disorder, unspecified (4) MDD (major depressive disorder) ARIS MONTES MD Dec 02, 2019 07:39
[2019-12-02] MEDS: DULoxetine HCL 60 MG CAPSULE.DR PO SCH (09:32)
[2019-12-02] MEDS: traMADol 50 MG TABLET PO SCH (09:32)
[2019-12-02] MEDS: ALLOPURINOL 100 MG TABLET. PO SCH (09:32)
[2019-12-02] MEDS: predniSONE 20 MG TABLET PO SCH (09:32)
[2019-12-02] MEDS: ALPRAZolam 0.25 MG TABLET PO SCH ×3 (09:32→20:15)
[2019-12-02] MEDS: LISINOPRIL 20 MG TABLET PO SCH (09:32)
[2019-12-02] MEDS: GABAPENTIN 300 MG CAPSULE. PO SCH ×3 (09:33→20:14)
[2019-12-02] MEDS: PROPRANOLOL 20 MG TABLET. PO SCH ×2 (09:33→20:14)
[2019-12-02] MEDS: PANTOPRAZOLE 40 MG TABLET. PO SCH (09:33)
[2019-12-02] MEDS: MEMANTINE 5 MG TABLET. PO SCH (09:33)
[2019-12-02] MEDS: CLOPIDOGREL BISULFATE 75 MG TABLET PO SCH (09:33)
[2019-12-02] MEDS: MELOXICAM 15 MG TABLET. PO SCH (09:33)
[2019-12-02] MEDS: metFORMIN 500 MG TABLET PO SCH ×2 (09:34→17:20)
[2019-12-02] MEDS: INSULIN GLARGINE SYRINGE. SQ SCH (09:34)
[2019-12-02] MEDS: POLYETHYLENE GLYCOL 3350 17 GM PACKET. PO SCH (09:35)
[2019-12-02 15:20] VITALS: BP 128/68
[2019-12-02] MEDS: QUEtiapine 50 MG TABLET. PO SCH (20:14)
--- NOTE | 2019-12-02 21:48 | NUR ---
Pt. was pleasant with interactions, was using a gopal tablet at beginning of PM shift and after the battery she read in her book. Came out and walked before lying down, provided self care prior to bed toileting and oralcare. When passing snacks for the evening pt. requested a cup of peanutbutter, declining other snacks, stating that the yogurt offered "had too much sugar". Pt stated "i had a spoonful of sherbert earlier" after her bloodsuger was taken and it was 280.
--- NOTE | 2019-12-02 21:59 | PDOC ---
Exam Note: Lyle Note: Please also refer to the separate dictated note~for this date of service dictated separately.~Patient seen individually. Discussed the patient with Nursing staff reviewed the chart.~Reviewed interim history and current functioning. Reviewed vital signs,~Labs/ Radiology~and current medications noted below. Continue current treatment with the changes noted in the dictated addendum note Assessment: Vital Signs/I&O: Vital Signs Date Time Temp Pulse Resp B/P (MAP) Pulse Ox O2 Delivery O2 Flow Rate FiO2 12/02/19 20:14 64 128/68 12/02/19 15:20 97.7 16 96 Room Air I & O 12/01/19 12/01/19 12/02/19 15:00 23:00 07:00 Intake Total 360 ml 600 ml Balance 360 ml 600 ml Labs: Laboratory Tests Test 12/02/19 07:35 12/02/19 19:43 Glucose (Fingerstick) 127 mg/dL (70-99) H 270 mg/dL (70-99) H Current Medications: I have reviewed the current psychotropics carefully including drug interactions. Risk benefit ratio favors no change other than as noted in my dictated progress note. Diagnosis: Problems: (1) Impulse control disorder, unspecified (2) Mild cognitive impairment (3) Anxiety disorder, unspecified (4) MDD (major depressive disorder) ARIS MONTES MD Dec 02, 2019 21:59
--- NOTE | 2019-12-03 01:49 | NUR ---
Last evening pt was in her room reading a book. She has been pleasant and social with staff. Meds were taken without difficulty. he said she has been writing in her journal and feel her thought process has improved since coming here. She has had no behaviors tonight.
[2019-12-03 06:00] VITALS: BP 78/52
[2019-12-03] MEDS: POLYETHYLENE GLYCOL 3350 17 GM PACKET. PO SCH (09:25)
[2019-12-03] MEDS: PANTOPRAZOLE 40 MG TABLET. PO SCH (09:25)
[2019-12-03] MEDS: DULoxetine HCL 60 MG CAPSULE.DR PO SCH (09:26)
[2019-12-03] MEDS: metFORMIN 500 MG TABLET PO SCH ×2 (09:26→17:37)
[2019-12-03] MEDS: traMADol 50 MG TABLET PO SCH (09:26)
[2019-12-03] MEDS: GABAPENTIN 300 MG CAPSULE. PO SCH ×3 (09:26→21:11)
[2019-12-03] MEDS: ALPRAZolam 0.25 MG TABLET PO SCH ×3 (09:26→21:11)
[2019-12-03] MEDS: MELOXICAM 15 MG TABLET. PO SCH (09:26)
[2019-12-03] MEDS: CLOPIDOGREL BISULFATE 75 MG TABLET PO SCH (09:26)
[2019-12-03] MEDS: MEMANTINE 5 MG TABLET. PO SCH (09:26)
[2019-12-03] MEDS: ALLOPURINOL 100 MG TABLET. PO SCH (09:26)
[2019-12-03] MEDS: predniSONE 20 MG TABLET PO SCH (09:27)
[2019-12-03] MEDS: PROPRANOLOL 20 MG TABLET. PO SCH ×2 (09:27→21:10)
[2019-12-03] MEDS: LISINOPRIL 20 MG TABLET PO SCH (09:28)
[2019-12-03] MEDS: INSULIN GLARGINE SYRINGE. SQ SCH (09:47)
--- NOTE | 2019-12-03 14:00 | NUR ---
SW attempted to contact the automotive warranty administrator/DON at [facility] and ended up leaving a message for them to contact when possible re: discharge plans and updates on pt.
--- NOTE | 2019-12-03 15:24 | NUR ---
Patient has spent time in her room reading and resting. She is pleasant and interactive. Patient is compliant with medications and performs her own ADLs. Patient denies SI when asked.
[2019-12-03 15:28] VITALS: BP 106/66
--- NOTE | 2019-12-03 21:00 | NUR ---
Patient is in her room on assumption of care. She is sitting quietly, listening to music on the unit gopal. She is in pleasant spirits, interactive, appropriate. Compliant with assessments and medications taken whole. She requested a PRN Tramadol for 5/10 left hip pain, which she received with her HS meds. Patient denies SI. She appears to be sleeping comfortably at present time. Will continue to monitor.
[2019-12-03] MEDS: QUEtiapine 50 MG TABLET. PO SCH (21:10)
[2019-12-03] MEDS: traMADol 50 MG TABLET PO PRN (21:18)
--- NOTE | 2019-12-03 21:58 | PDOC ---
Exam Note: Lyle Note: Please also refer to the separate dictated note~for this date of service dictated separately.~Patient seen individually. Discussed the patient with Nursing staff reviewed the chart.~Reviewed interim history and current functioning. Reviewed vital signs,~Labs/ Radiology~and current medications noted below. Continue current treatment with the changes noted in the dictated addendum note Assessment: Vital Signs/I&O: Vital Signs Date Time Temp Pulse Resp B/P (MAP) Pulse Ox O2 Delivery O2 Flow Rate FiO2 12/03/19 21:10 85 110/67 12/03/19 15:28 98.2 18 96 12/02/19 15:20 Room Air I & O 12/02/19 12/02/19 12/03/19 15:00 23:00 07:00 Intake Total 320 ml 120 ml Balance 320 ml 120 ml Labs: Laboratory Tests Test 12/03/19 07:17 12/03/19 19:29 Glucose (Fingerstick) 159 mg/dL (70-99) H 329 mg/dL (70-99) H Current Medications: I have reviewed the current psychotropics carefully including drug interactions. Risk benefit ratio favors no change other than as noted in my dictated progress note. Diagnosis: Problems: (1) Impulse control disorder, unspecified (2) Mild cognitive impairment (3) Anxiety disorder, unspecified (4) MDD (major depressive disorder) ARIS MONTES MD Dec 03, 2019 21:58
--- NOTE | 2019-12-04 01:47 | NUR ---
Pt pleasant with interactions during PM shift. After obtaining pt. bloodsuger pt stated "i ate some grapes earlier, thats probably why it is high". Pt requested magazines to read and I provided 3 from the activities cabinet. Pt was able to toilet self and perform all adls independently.
[2019-12-04 05:00] VITALS: BP 117/69
--- NOTE | 2019-12-04 06:50 | PDOC ---
Exam Note: Lyle Note: This note is a late entry for 12/02/2019 covers elements not covered in my initial note. Subjective: The patient was reviewed on telehealth rounds in the evening of 12/02/2019 with Attila MOY. Discussed with nursing staff, reviewed the chart. She slept 7-1/2 hours. Overall the patient is doing better, less anxious, less hyperverbal. Review of Systems: No CV, , pulmonary, eye system symptoms on review. Mental Status Exam: Reasonably oriented. Speech is coherent, rapid at times. Abstraction is fair. Computation impaired. Language function is intact. Mood and affect is improved. Laboratory Data: Reviewed. Impression: Major depressive disorder recurrent. Anxiety disorder unspecified. Mild cognitive impairment. Impulse control disorder unspecified. Plan: No change from initial note. Assessment: Vital Signs/I&O: Vital Signs Date Time Temp Pulse Resp B/P (MAP) Pulse Ox O2 Delivery O2 Flow Rate FiO2 12/04/19 05:00 97.7 65 16 117/69 (85) 95 Room Air I & O 12/03/19 12/03/19 12/04/19 15:00 23:00 07:00 Intake Total 445 ml 360 ml 500 ml Balance 445 ml 360 ml 500 ml Labs: Laboratory Tests Test 12/03/19 07:17 12/03/19 19:29 Glucose (Fingerstick) 159 mg/dL (70-99) H 329 mg/dL (70-99) H Current Medications: I have reviewed the current psychotropics carefully including drug interactions. Risk benefit ratio favors no change other than as noted in my dictated progress note. Diagnosis: Problems: (1) Impulse control disorder, unspecified (2) Mild cognitive impairment (3) Anxiety disorder, unspecified (4) MDD (major depressive disorder) ARSI MONTES MD Dec 04, 2019 06:50
--- NOTE | 2019-12-04 07:02 | PDOC ---
Exam Note: Lyle Note: This note is a late entry for 12/03/2019 covers elements not covered in my initial note. Subjective: The patient was reviewed on telehealth rounds in the evening of 12/03/2019 with Char MOY. Discussed with nursing staff, reviewed the chart. She slept 7-1/4 hours. She has been calm, has been using the gopal to keep her mind busy, wanting salad for every meal. Review of Systems: No CV, , pulmonary, eye system symptoms on review. Mental Status Exam: Reasonably oriented. Speech is coherent. Abstraction is fair. Computation impaired. Language function is intact. Mood and affect is improved. No suicidal ideation. Laboratory Data: Reviewed. Impression: Major depressive disorder recurrent. Anxiety disorder unspecified. Mild cognitive impairment. Impulse control disorder unspecified. Plan: No change from initial note. Assessment: Vital Signs/I&O: Vital Signs Date Time Temp Pulse Resp B/P (MAP) Pulse Ox O2 Delivery O2 Flow Rate FiO2 12/04/19 05:00 97.7 65 16 117/69 (85) 95 Room Air I & O 12/03/19 12/03/19 12/04/19 15:00 23:00 07:00 Intake Total 445 ml 360 ml 500 ml Balance 445 ml 360 ml 500 ml Labs: Laboratory Tests Test 12/03/19 07:17 12/03/19 19:29 Glucose (Fingerstick) 159 mg/dL (70-99) H 329 mg/dL (70-99) H Current Medications: I have reviewed the current psychotropics carefully including drug interactions. Risk benefit ratio favors no change other than as noted in my dictated progress note. Diagnosis: Problems: (1) Impulse control disorder, unspecified (2) Mild cognitive impairment (3) Anxiety disorder, unspecified (4) MDD (major depressive disorder) ARIS MONTES MD Dec 04, 2019 07:02
[2019-12-04] MEDS: DULoxetine HCL 60 MG CAPSULE.DR PO SCH (08:40)
[2019-12-04] MEDS: metFORMIN 500 MG TABLET PO SCH ×2 (08:40→17:27)
[2019-12-04] MEDS: MEMANTINE 5 MG TABLET. PO SCH (08:41)
[2019-12-04] MEDS: POLYETHYLENE GLYCOL 3350 17 GM PACKET. PO SCH (08:41)
[2019-12-04] MEDS: MELOXICAM 15 MG TABLET. PO SCH (08:41)
[2019-12-04] MEDS: PANTOPRAZOLE 40 MG TABLET. PO SCH (08:42)
[2019-12-04] MEDS: GABAPENTIN 300 MG CAPSULE. PO SCH ×3 (08:42→20:17)
[2019-12-04] MEDS: CLOPIDOGREL BISULFATE 75 MG TABLET PO SCH (08:42)
[2019-12-04] MEDS: INSULIN GLARGINE SYRINGE. SQ SCH (08:42)
[2019-12-04] MEDS: LISINOPRIL 20 MG TABLET PO SCH (08:42)
[2019-12-04] MEDS: ALLOPURINOL 100 MG TABLET. PO SCH (08:42)
[2019-12-04] MEDS: PROPRANOLOL 20 MG TABLET. PO SCH ×2 (08:46→20:19)
[2019-12-04] MEDS: traMADol 50 MG TABLET PO SCH (08:47)
[2019-12-04] MEDS: ALPRAZolam 0.25 MG TABLET PO SCH ×3 (08:47→20:19)
[2019-12-04] MEDS: predniSONE 20 MG TABLET PO SCH (08:48)
[2019-12-04 11:06] LABS: BASO # 0.1 x10^3/uL (0.0-0.2); BASO % 1 % (0-3); EOS # 0.1 x10^3/uL (0.0-0.7); EOS % 1 % (0-3); HEMOGLOBIN 12.6 g/dL (12.0-15.5); LYMPH # 3.1 x10^3/uL (1.0-4.8); LYMPH % 37 % (24-48); MEAN CORPUSCULAR HEMOGLOBIN 28 pg (25-35); MEAN CORPUSCULAR HGB CONC 32 g/dL (31-37); MEAN CORPUSCULAR VOLUME 87 fL (79-100); MONO # 0.5 x10^3/uL (0.0-1.1); MONO % 6 % (0-9); NEUT # 4.7 x10^3uL (1.8-7.7); NEUT % 55 % (31-73); PLATELET COUNT 225 x10^3/uL (140-400); RED BLOOD COUNT 4.48 x10^6/uL (3.50-5.40); RED CELL DISTRIBUTION WIDTH 14.1 % (11.5-14.5); WHITE BLOOD COUNT 8.6 x10^3/uL (4.0-11.0)
[2019-12-04 11:15] LABS: ALBUMIN 3.1 g/dL (3.4-5.0); ALBUMIN/GLOBULIN RATIO 1.1 (1.0-1.7); CALCIUM 8.7 mg/dL (8.5-10.1); GFR 54.5; POTASSIUM 4.1 mmol/L (3.5-5.1); TOTAL BILIRUBIN 0.2 mg/dL (0.2-1.0); TOTAL PROTEIN 5.8 g/dL (6.4-8.2)
--- NOTE | 2019-12-04 11:16 | NUR ---
Pt is compliant with her medication and assessment. When administering insulin pt stated other nurses let her do it herself and "you are the only one who doesn't let me do it myself." Nurse educated pt on hospital policy. When asking pt how she feels today pt states "fine." No agitation or aggression. No hallucinations or delusions noted.
[2019-12-04 15:00] VITALS: BP 106/66
[2019-12-04] MEDS: QUEtiapine 50 MG TABLET. PO SCH (20:17)
[2019-12-04] MEDS: traMADol 50 MG TABLET PO PRN (20:17)
--- NOTE | 2019-12-04 21:00 | NUR ---
Patient is in her room on assumption of care. She is sitting quietly, playing solitaire on the unit gopal. She is in pleasant spirits, interactive, appropriate. Compliant with assessments and medications taken whole. She requested a PRN Tramadol for 5/10 left hip pain, which she received with her HS meds. Patient denies SI. She appears to be sleeping comfortably at present time. Will continue to monitor.
--- NOTE | 2019-12-04 21:25 | NUR ---
Pt. pleasant and conversational on interaction. Requested tablet to play solitaire. Provided pt with snack. Pt. walked around unit (wearing mask of own accord) and returned to room.
--- NOTE | 2019-12-04 22:06 | PDOC ---
Exam Note: Lyle Note: Please also refer to the separate dictated note~for this date of service dictated separately.~Patient seen individually. Discussed the patient with Nursing staff reviewed the chart.~Reviewed interim history and current functioning. Reviewed vital signs,~Labs/ Radiology~and current medications noted below. Continue current treatment with the changes noted in the dictated addendum note Assessment: Vital Signs/I&O: Vital Signs Date Time Temp Pulse Resp B/P (MAP) Pulse Ox O2 Delivery O2 Flow Rate FiO2 12/04/19 20:19 71 125/75 12/04/19 15:00 98.2 18 95 Room Air I & O 12/03/19 12/03/19 12/04/19 15:00 23:00 07:00 Intake Total 445 ml 360 ml 500 ml Balance 445 ml 360 ml 500 ml Labs: Laboratory Tests Test 12/04/19 08:09 12/04/19 10:27 12/04/19 11:53 12/04/19 19:18 Glucose (Fingerstick) 163 mg/dL (70-99) H 213 mg/dL (70-99) H 143 mg/dL (70-99) H White Blood Count 8.6 x10^3/uL (4.0-11.0) Red Blood Count 4.48 x10^6/uL (3.50-5.40) Hemoglobin 12.6 g/dL (12.0-15.5) Hematocrit 39.0 % (36.0-47.0) Mean Corpuscular Volume 87 fL (79-100) Mean Corpuscular Hemoglobin 28 pg (25-35) Mean Corpuscular Hemoglobin Concent 32 g/dL (31-37) Red Cell Distribution Width 14.1 % (11.5-14.5) Platelet Count 225 x10^3/uL (140-400) Neutrophils (%) (Auto) 55 % (31-73) Lymphocytes (%) (Auto) 37 % (24-48) Monocytes (%) (Auto) 6 % (0-9) Eosinophils (%) (Auto) 1 % (0-3) Basophils (%) (Auto) 1 % (0-3) Neutrophils # (Auto) 4.7 x10^3uL (1.8-7.7) Lymphocytes # (Auto) 3.1 x10^3/uL (1.0-4.8) Monocytes # (Auto) 0.5 x10^3/uL (0.0-1.1) Eosinophils # (Auto) 0.1 x10^3/uL (0.0-0.7) Basophils # (Auto) 0.1 x10^3/uL (0.0-0.2) Sodium Level 131 mmol/L (136-145) L Potassium Level 4.1 mmol/L (3.5-5.1) Chloride Level 96 mmol/L (98-107) L Carbon Dioxide Level 25 mmol/L (21-32) Anion Gap 10 (6-14) Blood Urea Nitrogen 21 mg/dL (7-20) H Creatinine 1.0 mg/dL (0.6-1.0) Estimated GFR (Cockcroft-Gault) 54.5 BUN/Creatinine Ratio 21 (6-20) H Glucose Level 234 mg/dL (70-99) H Calcium Level 8.7 mg/dL (8.5-10.1) Total Bilirubin 0.2 mg/dL (0.2-1.0) Aspartate Amino Transferase (AST) 6 U/L (15-37) L Alanine Aminotransferase (ALT) 15 U/L (14-59) Alkaline Phosphatase 73 U/L (46-116) Total Protein 5.8 g/dL (6.4-8.2) L Albumin 3.1 g/dL (3.4-5.0) L Albumin/Globulin Ratio 1.1 (1.0-1.7) Current Medications: I have reviewed the current psychotropics carefully including drug interactions. Risk benefit ratio favors no change other than as noted in my dictated progress note. Diagnosis: Problems: (1) Impulse control disorder, unspecified (2) Mild cognitive impairment (3) Anxiety disorder, unspecified (4) MDD (major depressive disorder) ARIS MONTES MD Dec 04, 2019 22:06
--- NOTE | 2019-12-04 23:18 | PDOC ---
Exam Note: Lyle Note: This note for 12/04/2019 covers elements not covered in my initial note. Subjective: The patient was reviewed on telehealth rounds in the evening of 12/04/2019 with Onelia MOY. Discussed with nursing staff, reviewed the chart. Overall the patient has done better, appears less anxious, less somatically preoccupied. Sodium 131, defer to Dr. Schroeder. Review of Systems: No CV, , pulmonary, eye system symptoms on review. Mental Status Exam: Reasonably oriented. Speech is coherent. Abstraction is fair. Computation impaired. Language function is intact. Attention span is fair. Mood and affect is improved. No suicidal ideation. Laboratory Data: Reviewed. Impression: Major depressive disorder recurrent. Anxiety disorder unspecified. Mild cognitive impairment. Impulse control disorder unspecified. Plan: No change from initial note. Assessment: Vital Signs/I&O: Vital Signs Date Time Temp Pulse Resp B/P (MAP) Pulse Ox O2 Delivery O2 Flow Rate FiO2 12/04/19 20:19 71 125/75 12/04/19 15:00 98.2 18 95 Room Air I & O 12/03/19 12/03/19 12/04/19 15:00 23:00 07:00 Intake Total 445 ml 360 ml 500 ml Balance 445 ml 360 ml 500 ml Labs: Laboratory Tests Test 12/04/19 08:09 12/04/19 10:27 12/04/19 11:53 12/04/19 19:18 Glucose (Fingerstick) 163 mg/dL (70-99) H 213 mg/dL (70-99) H 143 mg/dL (70-99) H White Blood Count 8.6 x10^3/uL (4.0-11.0) Red Blood Count 4.48 x10^6/uL (3.50-5.40) Hemoglobin 12.6 g/dL (12.0-15.5) Hematocrit 39.0 % (36.0-47.0) Mean Corpuscular Volume 87 fL (79-100) Mean Corpuscular Hemoglobin 28 pg (25-35) Mean Corpuscular Hemoglobin Concent 32 g/dL (31-37) Red Cell Distribution Width 14.1 % (11.5-14.5) Platelet Count 225 x10^3/uL (140-400) Neutrophils (%) (Auto) 55 % (31-73) Lymphocytes (%) (Auto) 37 % (24-48) Monocytes (%) (Auto) 6 % (0-9) Eosinophils (%) (Auto) 1 % (0-3) Basophils (%) (Auto) 1 % (0-3) Neutrophils # (Auto) 4.7 x10^3uL (1.8-7.7) Lymphocytes # (Auto) 3.1 x10^3/uL (1.0-4.8) Monocytes # (Auto) 0.5 x10^3/uL (0.0-1.1) Eosinophils # (Auto) 0.1 x10^3/uL (0.0-0.7) Basophils # (Auto) 0.1 x10^3/uL (0.0-0.2) Sodium Level 131 mmol/L (136-145) L Potassium Level 4.1 mmol/L (3.5-5.1) Chloride Level 96 mmol/L (98-107) L Carbon Dioxide Level 25 mmol/L (21-32) Anion Gap 10 (6-14) Blood Urea Nitrogen 21 mg/dL (7-20) H Creatinine 1.0 mg/dL (0.6-1.0) Estimated GFR (Cockcroft-Gault) 54.5 BUN/Creatinine Ratio 21 (6-20) H Glucose Level 234 mg/dL (70-99) H Calcium Level 8.7 mg/dL (8.5-10.1) Total Bilirubin 0.2 mg/dL (0.2-1.0) Aspartate Amino Transferase (AST) 6 U/L (15-37) L Alanine Aminotransferase (ALT) 15 U/L (14-59) Alkaline Phosphatase 73 U/L (46-116) Total Protein 5.8 g/dL (6.4-8.2) L Albumin 3.1 g/dL (3.4-5.0) L Albumin/Globulin Ratio 1.1 (1.0-1.7) Current Medications: I have reviewed the current psychotropics carefully including drug interactions. Risk benefit ratio favors no change other than as noted in my dictated progress note. Diagnosis: Problems: (1) Impulse control disorder, unspecified (2) Mild cognitive impairment (3) Anxiety disorder, unspecified (4) MDD (major depressive disorder) ARIS MONTES MD Dec 04, 2019 23:18
[2019-12-05 05:00] VITALS: BP 102/63
[2019-12-05] MEDS: INSULIN GLARGINE SYRINGE. SQ SCH (08:42)
[2019-12-05] MEDS: POLYETHYLENE GLYCOL 3350 17 GM PACKET. PO SCH (08:47)
[2019-12-05] MEDS: CLOPIDOGREL BISULFATE 75 MG TABLET PO SCH (08:50)
[2019-12-05] MEDS: PANTOPRAZOLE 40 MG TABLET. PO SCH (08:50)
[2019-12-05] MEDS: ALPRAZolam 0.25 MG TABLET PO SCH ×3 (08:50→21:18)
[2019-12-05] MEDS: GABAPENTIN 300 MG CAPSULE. PO SCH ×3 (08:50→21:18)
[2019-12-05] MEDS: ALLOPURINOL 100 MG TABLET. PO SCH (08:50)
[2019-12-05] MEDS: MELOXICAM 15 MG TABLET. PO SCH (08:50)
[2019-12-05] MEDS: MEMANTINE 5 MG TABLET. PO SCH (08:50)
[2019-12-05] MEDS: metFORMIN 500 MG TABLET PO SCH ×2 (08:51→16:37)
[2019-12-05] MEDS: DULoxetine HCL 60 MG CAPSULE.DR PO SCH (08:51)
[2019-12-05] MEDS: traMADol 50 MG TABLET PO SCH (08:51)
[2019-12-05] MEDS: LISINOPRIL 20 MG TABLET PO SCH (09:00)
[2019-12-05] MEDS: predniSONE 20 MG TABLET PO SCH (09:00)
[2019-12-05] MEDS: PROPRANOLOL 20 MG TABLET. PO SCH ×2 (09:00→21:17)
--- NOTE | 2019-12-05 10:59 | NUR ---
Pt is compliant with her medication and assessment. When asking pt how she feels and how she slept pt states "fine." No agitation or aggression. No hallucinations or delusions noted.
[2019-12-05 15:00] VITALS: BP 117/73
[2019-12-05] MEDS: QUEtiapine 50 MG TABLET. PO SCH (21:17)
[2019-12-05] MEDS: traMADol 50 MG TABLET PO PRN (21:18)
--- NOTE | 2019-12-05 22:11 | PDOC ---
Exam Note: Lyle Note: Please also refer to the separate dictated note~for this date of service dictated separately.~Patient seen individually. Discussed the patient with Nursing staff reviewed the chart.~Reviewed interim history and current functioning. Reviewed vital signs,~Labs/ Radiology~and current medications noted below. Continue current treatment with the changes noted in the dictated addendum note Assessment: Vital Signs/I&O: Vital Signs Date Time Temp Pulse Resp B/P (MAP) Pulse Ox O2 Delivery O2 Flow Rate FiO2 12/05/19 21:17 72 117/73 12/05/19 15:00 97.9 16 97 Room Air I & O 12/04/19 12/04/19 12/05/19 15:00 23:00 07:00 Intake Total 600 ml 460 ml Balance 600 ml 460 ml Labs: Laboratory Tests Test 12/05/19 07:49 12/05/19 20:20 Glucose (Fingerstick) 118 mg/dL (70-99) H 100 mg/dL (70-99) H Current Medications: I have reviewed the current psychotropics carefully including drug interactions. Risk benefit ratio favors no change other than as noted in my dictated progress note. Diagnosis: Problems: (1) Impulse control disorder, unspecified (2) Mild cognitive impairment (3) Anxiety disorder, unspecified (4) MDD (major depressive disorder) ARIS MONTES MD Dec 05, 2019 22:11
--- NOTE | 2019-12-05 22:48 | NUR ---
Patient is in her room on assumption of care. She is sitting quietly, doing a crossword on the unit gopal. She is in pleasant spirits, interactive, appropriate. Compliant with assessments and medications taken whole. She requested a PRN Tramadol for 5/10 left hip pain, which she received with her HS meds. Patient denies SI. She appears to be sleeping comfortably at present time. Will continue to monitor.
[2019-12-06 05:30] VITALS: BP 85/52
[2019-12-06 06:00] VITALS: BP 102/64
[2019-12-06] MEDS: metFORMIN 500 MG TABLET PO SCH ×2 (08:57→17:00)
[2019-12-06] MEDS: INSULIN GLARGINE SYRINGE. SQ SCH (08:57)
[2019-12-06] MEDS: DULoxetine HCL 60 MG CAPSULE.DR PO SCH (08:57)
[2019-12-06] MEDS: MEMANTINE 5 MG TABLET. PO SCH (08:58)
[2019-12-06] MEDS: PROPRANOLOL 20 MG TABLET. PO SCH ×2 (08:58→20:24)
[2019-12-06] MEDS: MELOXICAM 15 MG TABLET. PO SCH (08:58)
[2019-12-06] MEDS: POLYETHYLENE GLYCOL 3350 17 GM PACKET. PO SCH (08:58)
[2019-12-06] MEDS: ALLOPURINOL 100 MG TABLET. PO SCH (08:59)
[2019-12-06] MEDS: ALPRAZolam 0.25 MG TABLET PO SCH ×3 (08:59→20:24)
[2019-12-06] MEDS: traMADol 50 MG TABLET PO SCH (08:59)
[2019-12-06] MEDS: PANTOPRAZOLE 40 MG TABLET. PO SCH (08:59)
[2019-12-06] MEDS: GABAPENTIN 300 MG CAPSULE. PO SCH ×3 (08:59→20:23)
[2019-12-06] MEDS: predniSONE 20 MG TABLET PO SCH (08:59)
[2019-12-06] MEDS: LISINOPRIL 20 MG TABLET PO SCH (08:59)
[2019-12-06] MEDS: CLOPIDOGREL BISULFATE 75 MG TABLET PO SCH (08:59)
--- NOTE | 2019-12-06 14:10 | NUR ---
Pt is compliant with her medication and assessment. When asking pt how she feels today she states "fine." No agitation or aggression. No hallucinations or delusions noted.
--- NOTE | 2019-12-06 15:18 | NUR ---
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
[2019-12-06 15:51] VITALS: BP 130/59
[2019-12-06] MEDS: LISINOPRIL 10 MG TABLET PO SCH (17:00)
[2019-12-06] MEDS: traMADol 50 MG TABLET PO PRN (20:24)
[2019-12-06] MEDS: QUEtiapine 50 MG TABLET. PO SCH (20:25)
--- NOTE | 2019-12-06 21:59 | PDOC ---
Exam Note: Lyle Note: Please also refer to the separate dictated note~for this date of service dictated separately.~Patient seen individually. Discussed the patient with Nursing staff reviewed the chart.~Reviewed interim history and current functioning. Reviewed vital signs,~Labs/ Radiology~and current medications noted below. Continue current treatment with the changes noted in the dictated addendum note Assessment: Vital Signs/I&O: Vital Signs Date Time Temp Pulse Resp B/P (MAP) Pulse Ox O2 Delivery O2 Flow Rate FiO2 12/06/19 20:24 75 130/59 12/06/19 15:51 97.5 18 96 12/06/19 05:30 Room Air I & O 12/05/19 12/05/19 12/06/19 15:00 23:00 07:00 Intake Total 680 ml 480 ml Balance 680 ml 480 ml Labs: Laboratory Tests Test 12/06/19 08:18 Glucose (Fingerstick) 159 mg/dL (70-99) H Current Medications: I have reviewed the current psychotropics carefully including drug interactions. Risk benefit ratio favors no change other than as noted in my dictated progress note. Diagnosis: Problems: (1) Impulse control disorder, unspecified (2) Mild cognitive impairment (3) Anxiety disorder, unspecified (4) MDD (major depressive disorder) ARIS MONTES MD Dec 06, 2019 21:59
[2019-12-07] MEDS: DICLOFENAC SODIUM 1% TOPICAL GEL 100GM TUBE. TP PRN (06:07)
[2019-12-07 06:26] VITALS: BP 92/51
--- NOTE | 2019-12-07 06:28 | PDOC ---
Exam Note: Lyle Note: This note is a late entry for 12/05/2019 covers elements not covered in my initial note. Subjective: The patient was reviewed on telehealth rounds in the evening of 12/05/2019 with Onelia MOY. Discussed with nursing staff, reviewed the chart. She slept 7-1/4 hours previous night. She did well previous night and during the day. Review of Systems: No CV, , pulmonary, eye system symptoms on review. Mental Status Exam: Reasonably oriented. Speech is coherent. Abstraction is fair. Computation impaired. Language function is intact. Attention span is short. Mood and affect is improved, less depressed. We had lengthy discussion about her mood/anxiety symptoms, treatment how much better she feels and she is very appreciative of the care. No suicidal or homicidal ideation. Laboratory Data: Reviewed. Impression: Major depressive disorder recurrent. Anxiety disorder unspecified. Mild cognitive impairment. Impulse control disorder unspecified. Plan: No change from initial note. Assessment: Vital Signs/I&O: Vital Signs Date Time Temp Pulse Resp B/P (MAP) Pulse Ox O2 Delivery O2 Flow Rate FiO2 12/07/19 06:26 98.1 71 92/51 (65) 93 Room Air 12/06/19 15:51 18 I & O 12/06/19 12/06/19 12/07/19 15:00 23:00 07:00 Intake Total 840 ml 360 ml Balance 840 ml 360 ml Labs: Laboratory Tests Test 12/06/19 08:18 Glucose (Fingerstick) 159 mg/dL (70-99) H Current Medications: Meds: Current Medications Medications (Trade) Dose Ordered Sig/Velia Route PRN Reason Start Time Stop Time Status Last Admin Dose Admin Diclofenac Sodium (Voltaren) 1 kenn PRN QID PRN TP PAIN 12/07/19 06:15 12/07/19 06:07 I have reviewed the current psychotropics carefully including drug interactions. Risk benefit ratio favors no change other than as noted in my dictated progress note. Diagnosis: Problems: (1) Impulse control disorder, unspecified (2) Mild cognitive impairment (3) Anxiety disorder, unspecified (4) MDD (major depressive disorder) ARIS MONTES MD Dec 07, 2019 06:27
--- NOTE | 2019-12-07 06:46 | PDOC ---
Exam Note: Lyle Note: This note is a late entry for 12/06/2019 covers elements not covered in my initial note. Subjective: The patient was reviewed on telehealth rounds in the morning of 12/06/2019 for treatment team meeting with Km, social service staff, Onelia MOY, Marta Anand, social service. Also reviewed on telehealth rounds in the evening of 12/05. Discussed with nursing staff, reviewed the chart. Sleeping average is 7 hours. Appetite is 100%. She did well at night and during the day as well. Sodium 131. We will defer to Dr. Schroeder. Review of Systems: No CV, , eye, ENT system symptoms on review. Mental Status Exam: Reasonably oriented. Speech is coherent. Abstraction is fair. Computation reasonable. Language function is intact. Mood and affect is improved. No suicidal ideation. Laboratory Data: Reviewed. Impression: Major depressive disorder recurrent. Anxiety disorder unspecified. Mild cognitive impairment. Impulse control disorder unspecified. Plan: No change from initial note. We addressed discharge plans during the individual telehealth visit. Assessment: Vital Signs/I&O: Vital Signs Date Time Temp Pulse Resp B/P (MAP) Pulse Ox O2 Delivery O2 Flow Rate FiO2 12/07/19 06:26 98.1 71 92/51 (65) 93 Room Air 12/06/19 15:51 18 I & O 12/06/19 12/06/19 12/07/19 15:00 23:00 07:00 Intake Total 840 ml 360 ml Balance 840 ml 360 ml Labs: Laboratory Tests Test 12/06/19 08:18 Glucose (Fingerstick) 159 mg/dL (70-99) H Current Medications: Meds: Current Medications Medications (Trade) Dose Ordered Sig/Velia Route PRN Reason Start Time Stop Time Status Last Admin Dose Admin Diclofenac Sodium (Voltaren) 1 kenn PRN QID PRN TP PAIN 12/07/19 06:15 12/07/19 06:07 I have reviewed the current psychotropics carefully including drug interactions. Risk benefit ratio favors no change other than as noted in my dictated progress note. Diagnosis: Problems: (1) Impulse control disorder, unspecified (2) Mild cognitive impairment (3) Anxiety disorder, unspecified (4) MDD (major depressive disorder) ARIS MONTES MD Dec 07, 2019 06:46
[2019-12-07] MEDS: MELOXICAM 15 MG TABLET. PO SCH (08:45)
[2019-12-07] MEDS: POLYETHYLENE GLYCOL 3350 17 GM PACKET. PO SCH (08:45)
[2019-12-07] MEDS: ALLOPURINOL 100 MG TABLET. PO SCH (08:46)
[2019-12-07] MEDS: GABAPENTIN 300 MG CAPSULE. PO SCH ×3 (08:46→19:32)
[2019-12-07] MEDS: predniSONE 20 MG TABLET PO SCH (08:46)
[2019-12-07] MEDS: ALPRAZolam 0.25 MG TABLET PO SCH ×3 (08:46→19:32)
[2019-12-07] MEDS: metFORMIN 500 MG TABLET PO SCH ×2 (08:46→17:09)
[2019-12-07] MEDS: LISINOPRIL 10 MG TABLET PO SCH (08:47)
[2019-12-07] MEDS: traMADol 50 MG TABLET PO SCH (08:47)
[2019-12-07] MEDS: CLOPIDOGREL BISULFATE 75 MG TABLET PO SCH (08:48)
[2019-12-07] MEDS: PANTOPRAZOLE 40 MG TABLET. PO SCH (08:48)
[2019-12-07] MEDS: DULoxetine HCL 60 MG CAPSULE.DR PO SCH (08:48)
[2019-12-07] MEDS: MEMANTINE 5 MG TABLET. PO SCH (08:48)
[2019-12-07] MEDS: INSULIN GLARGINE SYRINGE. SQ SCH (08:51)
[2019-12-07] MEDS: PROPRANOLOL 20 MG TABLET. PO SCH ×2 (08:54→19:34)
--- NOTE | 2019-12-07 11:19 | NUR ---
JORDEN contacted pt sister Taylor regarding pt discharge plans and will look for a Friday discharge date. Taylor reports that pt will plan to return to [facility] and they have discussed this a few times over the phone. JORDEN and Taylor discussed having a neuropsych appointment set up to aid in pt mild cognitive impairment and definitively figure out if pt has some form of Dementia; as pt primary diagnosis at this time is MDD recurrent. Pt dtr would like a clear expectation as to if pt would be able to drive, as she feels she can and pt also wants to eventually go back to living at home alone. JORDEN will clarify that with the psychologist. JORDEN will plan to meet with pt tomorrow and then call Taylor back to determine discharge Friday versus Friday.
--- NOTE | 2019-12-07 11:26 | NUR ---
Nursing note: Pt was laying in her bed reading a magazine when approached for morning med pass and assessment. She was pleasant, med compliant, and cooperative with her assessment. She denies SI and says her depression is much better, but she is concerned about "what's next after I leave here?" This nurse conversed with pt for a few 10 minutes, which pt was appreciative of. She went back to reading her magazine and is now currently working on her crossword puzzles. Will continue to monitor.
[2019-12-07 16:15] VITALS: BP 12/70
[2019-12-07] MEDS: QUEtiapine 50 MG TABLET. PO SCH (19:31)
--- NOTE | 2019-12-07 21:50 | PDOC ---
Exam Note: Lyle Note: Please also refer to the separate dictated note~for this date of service dictated separately.~Patient seen individually. Discussed the patient with Nursing staff reviewed the chart.~Reviewed interim history and current functioning. Reviewed vital signs,~Labs/ Radiology~and current medications noted below. Continue current treatment with the changes noted in the dictated addendum note Assessment: Vital Signs/I&O: Vital Signs Date Time Temp Pulse Resp B/P (MAP) Pulse Ox O2 Delivery O2 Flow Rate FiO2 12/07/19 19:34 97 123/70 12/07/19 16:15 98.2 16 95 12/07/19 06:26 Room Air I & O 12/06/19 12/06/19 12/07/19 15:00 23:00 07:00 Intake Total 840 ml 360 ml Balance 840 ml 360 ml Labs: Laboratory Tests Test 12/07/19 08:25 Glucose (Fingerstick) 155 mg/dL (70-99) H Current Medications: Meds: Current Medications Medications (Trade) Dose Ordered Sig/Velia Route PRN Reason Start Time Stop Time Status Last Admin Dose Admin Diclofenac Sodium (Voltaren) 1 kenn PRN QID PRN TP PAIN 12/07/19 06:15 12/07/19 06:07 I have reviewed the current psychotropics carefully including drug interactions. Risk benefit ratio favors no change other than as noted in my dictated progress note. Diagnosis: Problems: (1) Impulse control disorder, unspecified (2) Mild cognitive impairment (3) Anxiety disorder, unspecified (4) MDD (major depressive disorder) ARIS MONTES MD Dec 07, 2019 21:50
--- NOTE | 2019-12-08 05:01 | NUR ---
Nursing Note The patient was calm and compliant with her assessment and medications. The patient took her medication whole. The patient is currently sleeping in her room.
[2019-12-08 06:16] VITALS: BP 112/53
[2019-12-08] MEDS ORDERED: INSULIN LISPRO 300 UNITS/3 ML VIAL. SQ ONE (08:00)
[2019-12-08] MEDS: PANTOPRAZOLE 40 MG TABLET. PO SCH (08:59)
[2019-12-08] MEDS: predniSONE 20 MG TABLET PO SCH (08:59)
[2019-12-08] MEDS: LISINOPRIL 10 MG TABLET PO SCH (08:59)
[2019-12-08] MEDS: ALLOPURINOL 100 MG TABLET. PO SCH (08:59)
[2019-12-08] MEDS: ALPRAZolam 0.25 MG TABLET PO SCH ×3 (08:59→20:09)
[2019-12-08] MEDS: MELOXICAM 15 MG TABLET. PO SCH (08:59)
[2019-12-08] MEDS: DULoxetine HCL 60 MG CAPSULE.DR PO SCH (08:59)
[2019-12-08] MEDS: CLOPIDOGREL BISULFATE 75 MG TABLET PO SCH (08:59)
[2019-12-08] MEDS: MEMANTINE 5 MG TABLET. PO SCH (08:59)
[2019-12-08] MEDS: metFORMIN 500 MG TABLET PO SCH ×2 (08:59→17:17)
[2019-12-08] MEDS: PROPRANOLOL 20 MG TABLET. PO SCH ×2 (09:00→20:08)
[2019-12-08] MEDS: GABAPENTIN 300 MG CAPSULE. PO SCH ×3 (09:00→20:09)
[2019-12-08] MEDS: DICLOFENAC SODIUM 1% TOPICAL GEL 100GM TUBE. TP PRN (09:00)
[2019-12-08] MEDS: traMADol 50 MG TABLET PO SCH (09:00)
[2019-12-08] MEDS: POLYETHYLENE GLYCOL 3350 17 GM PACKET. PO SCH (09:00)
--- NOTE | 2019-12-08 09:00 | NUR ---
Patient reports pain in her left hip, she is rating it 8/10. PRN tramadol provided per order as well as PRN Voltaren gel. Will continue to monitor.
[2019-12-08] MEDS: INSULIN GLARGINE SYRINGE. SQ SCH (09:03)
--- NOTE | 2019-12-08 10:42 | NUR ---
Patient has been cooperative and calm this morning. She stated that she feels she is "less focused on her blood sugar levels than she was when she first arrived". She attributed that to not always worrying about what the implanted blood sugar monitor says. She had a shower and then returned to her room to rest because her hip pain has been bothering her today.
[2019-12-08 15:43] VITALS: BP 124/81
[2019-12-08] MEDS: QUEtiapine 50 MG TABLET. PO SCH (20:09)
--- NOTE | 2019-12-08 22:03 | PDOC ---
Exam Note: Lyle Note: Please also refer to the separate dictated note~for this date of service dictated separately.~Patient seen individually. Discussed the patient with Nursing staff reviewed the chart.~Reviewed interim history and current functioning. Reviewed vital signs,~Labs/ Radiology~and current medications noted below. Continue current treatment with the changes noted in the dictated addendum note Assessment: Vital Signs/I&O: Vital Signs Date Time Temp Pulse Resp B/P (MAP) Pulse Ox O2 Delivery O2 Flow Rate FiO2 12/08/19 20:08 71 124/81 12/08/19 15:43 98.1 19 97 12/07/19 06:26 Room Air I & O 12/07/19 12/07/19 12/08/19 15:00 23:00 07:00 Intake Total 960 ml 480 ml Balance 960 ml 480 ml Labs: Laboratory Tests Test 12/08/19 08:08 12/08/19 19:11 Glucose (Fingerstick) 165 mg/dL (70-99) H 297 mg/dL (70-99) H Current Medications: Meds: Current Medications Medications (Trade) Dose Ordered Sig/Velia Route PRN Reason Start Time Stop Time Status Last Admin Dose Admin Insulin Human Lispro (HumaLOG) 10 units 1X ONCE SQ 12/08/19 08:00 12/08/19 19:52 DC 12/08/19 20:12 I have reviewed the current psychotropics carefully including drug interactions. Risk benefit ratio favors no change other than as noted in my dictated progress note. Diagnosis: Problems: (1) Impulse control disorder, unspecified (2) Mild cognitive impairment (3) Anxiety disorder, unspecified (4) MDD (major depressive disorder) ARIS MONTES MD Dec 08, 2019 22:03
--- NOTE | 2019-12-09 00:45 | NUR ---
Last evening pt was in her room she was pleasant and social with staff. Meds were taken whole without difficulty. She continues to say she is feeling much better than she did on admission and is looking forward to discharge. Since going to bed she has been sleeping and has had no behaviors tonight.
[2019-12-09 06:14] VITALS: BP 102/63
--- NOTE | 2019-12-09 06:35 | PDOC ---
Exam Note: Lyle Note: This note is a late entry for 12/07/2019 covers elements not covered in my initial note. Subjective: The patient was seen face to face in the evening of 12/07/2019. Discussed with nursing staff, reviewed the chart. Per nursing report the patient at times gets a little depressed but generally better. No suicidal ideation. Review of Systems: No CV, , pulmonary, eye, ENT system symptoms on review. Mental Status Exam: Reasonably oriented. Speech is coherent. Abstraction is fair. Computation reasonable. Language function is intact. Mood and affect is improved. Laboratory Data: Reviewed. Impression: Major depressive disorder recurrent. Anxiety disorder unspecified. Mild cognitive impairment. Impulse control disorder unspecified. Plan: No change from initial note. Assessment: Vital Signs/I&O: Vital Signs Date Time Temp Pulse Resp B/P (MAP) Pulse Ox O2 Delivery O2 Flow Rate FiO2 12/09/19 06:14 97.4 54 16 102/63 (76) 95 12/07/19 06:26 Room Air I & O 12/08/19 12/08/19 12/09/19 15:00 23:00 07:00 Intake Total 470 ml 480 ml Balance 470 ml 480 ml Labs: Laboratory Tests Test 12/08/19 08:08 12/08/19 19:11 Glucose (Fingerstick) 165 mg/dL (70-99) H 297 mg/dL (70-99) H Current Medications: Meds: Current Medications Medications (Trade) Dose Ordered Sig/Velia Route PRN Reason Start Time Stop Time Status Last Admin Dose Admin Insulin Human Lispro (HumaLOG) 10 units 1X ONCE SQ 12/08/19 08:00 12/08/19 19:52 DC 12/08/19 20:12 I have reviewed the current psychotropics carefully including drug interactions. Risk benefit ratio favors no change other than as noted in my dictated progress note. Diagnosis: Problems: (1) Impulse control disorder, unspecified (2) Mild cognitive impairment (3) Anxiety disorder, unspecified (4) MDD (major depressive disorder) ARIS MONTES MD Dec 09, 2019 06:35
--- NOTE | 2019-12-09 06:51 | PDOC ---
Exam Note: Lyle Note: This note is a late entry for 12/08/2019 covers elements not covered in my initial note. Subjective: The patient was seen face to face in the evening of 12/08/2019 with Char MOY. Discussed with nursing staff, reviewed the chart. The patient slept 8 hours previous night. She complains of some hip pain but she is less obsessive, less anxious, less fixated on her insulin and blood sugar numbers. I met with her extensively in her room. She talked about how she was introduced to her future by the two families getting together. She was still in college and he went ahead and did his mechanical engineering later. His father was sick and had a 2000 acre farm which her took over. She is quite animated at times, tearful, talking about this but appropriately so. Review of Systems: No CV, , pulmonary, eye, ENT system symptoms on review. Mental Status Exam: Reasonably oriented. Speech is coherent. Abstraction is fair. Computation reasonable. Language function is intact. Mood and affect is improved. Laboratory Data: Reviewed. Impression: Major depressive disorder recurrent. Anxiety disorder unspecified. Mild cognitive impairment. Impulse control disorder unspecified. Plan: No change from initial note. Assessment: Vital Signs/I&O: Vital Signs Date Time Temp Pulse Resp B/P (MAP) Pulse Ox O2 Delivery O2 Flow Rate FiO2 12/09/19 06:14 97.4 54 16 102/63 (76) 95 12/07/19 06:26 Room Air I & O 12/08/19 12/08/19 12/09/19 15:00 23:00 07:00 Intake Total 470 ml 480 ml Balance 470 ml 480 ml Labs: Laboratory Tests Test 12/08/19 08:08 12/08/19 19:11 Glucose (Fingerstick) 165 mg/dL (70-99) H 297 mg/dL (70-99) H Current Medications: Meds: Current Medications Medications (Trade) Dose Ordered Sig/Velia Route PRN Reason Start Time Stop Time Status Last Admin Dose Admin Insulin Human Lispro (HumaLOG) 10 units 1X ONCE SQ 12/08/19 08:00 12/08/19 19:52 DC 12/08/19 20:12 I have reviewed the current psychotropics carefully including drug interactions. Risk benefit ratio favors no change other than as noted in my dictated progress note. Diagnosis: Problems: (1) Impulse control disorder, unspecified (2) Mild cognitive impairment (3) Anxiety disorder, unspecified (4) MDD (major depressive disorder) ARIS MONTES MD Dec 09, 2019 06:51
[2019-12-09] MEDS: POLYETHYLENE GLYCOL 3350 17 GM PACKET. PO SCH (09:08)
--- NOTE | 2019-12-09 09:12 | NUR ---
patient requests to have miralax only every other day.
[2019-12-09] MEDS: MEMANTINE 5 MG TABLET. PO SCH (09:17)
[2019-12-09] MEDS: traMADol 50 MG TABLET PO SCH (09:18)
[2019-12-09] MEDS: predniSONE 20 MG TABLET PO SCH (09:18)
[2019-12-09] MEDS: MELOXICAM 15 MG TABLET. PO SCH (09:18)
[2019-12-09] MEDS: DULoxetine HCL 60 MG CAPSULE.DR PO SCH (09:18)
[2019-12-09] MEDS: PANTOPRAZOLE 40 MG TABLET. PO SCH (09:18)
[2019-12-09] MEDS: ALLOPURINOL 100 MG TABLET. PO SCH (09:18)
[2019-12-09] MEDS: metFORMIN 500 MG TABLET PO SCH ×2 (09:18→17:24)
[2019-12-09] MEDS: ALPRAZolam 0.25 MG TABLET PO SCH ×3 (09:18→19:24)
[2019-12-09] MEDS: PROPRANOLOL 20 MG TABLET. PO SCH ×2 (09:18→19:25)
[2019-12-09] MEDS: CLOPIDOGREL BISULFATE 75 MG TABLET PO SCH (09:19)
[2019-12-09] MEDS: GABAPENTIN 300 MG CAPSULE. PO SCH ×3 (09:19→19:24)
[2019-12-09] MEDS: LISINOPRIL 10 MG TABLET PO SCH (09:19)
[2019-12-09] MEDS: INSULIN GLARGINE SYRINGE. SQ SCH (09:20)
[2019-12-09 15:33] VITALS: BP 106/60
--- NOTE | 2019-12-09 16:59 | NUR ---
Patient has been calm and pleasant. She is cooperative with staff and compliant with medications. Patient spent most of her time in her room reading.
[2019-12-09] MEDS: QUEtiapine 50 MG TABLET. PO SCH (19:25)
--- NOTE | 2019-12-09 22:10 | PDOC ---
Exam Note: Lyle Note: Please also refer to the separate dictated note~for this date of service dictated separately.~Patient seen individually. Discussed the patient with Nursing staff reviewed the chart.~Reviewed interim history and current functioning. Reviewed vital signs,~Labs/ Radiology~and current medications noted below. Continue current treatment with the changes noted in the dictated addendum note Assessment: Vital Signs/I&O: Vital Signs Date Time Temp Pulse Resp B/P (MAP) Pulse Ox O2 Delivery O2 Flow Rate FiO2 12/09/19 19:25 66 106/60 12/09/19 15:33 98.2 18 95 12/07/19 06:26 Room Air I & O 12/08/19 12/08/19 12/09/19 15:00 23:00 07:00 Intake Total 470 ml 480 ml Balance 470 ml 480 ml Labs: Laboratory Tests Test 12/09/19 19:21 Glucose (Fingerstick) 281 mg/dL (70-99) H Current Medications: I have reviewed the current psychotropics carefully including drug interactions. Risk benefit ratio favors no change other than as noted in my dictated progress note. Diagnosis: Problems: (1) Impulse control disorder, unspecified (2) Mild cognitive impairment (3) Anxiety disorder, unspecified (4) MDD (major depressive disorder) ARIS MONTES MD Dec 09, 2019 22:10
--- NOTE | 2019-12-09 23:45 | NUR ---
Pt has been in her room tonight. Early in shift she was anxious and said it was from the shouting of a peer in the hallway. Hs meds were given and she has been sleeping.
[2019-12-10] MEDS: BACLOFEN 10 MG TABLET PO PRN (03:25)
[2019-12-10 06:42] VITALS: BP 134/74
[2019-12-10] MEDS: GABAPENTIN 300 MG CAPSULE. PO SCH ×3 (09:02→19:44)
[2019-12-10] MEDS: ALLOPURINOL 100 MG TABLET. PO SCH (09:02)
[2019-12-10] MEDS: MELOXICAM 15 MG TABLET. PO SCH (09:02)
[2019-12-10] MEDS: MEMANTINE 5 MG TABLET. PO SCH (09:02)
[2019-12-10] MEDS: DULoxetine HCL 60 MG CAPSULE.DR PO SCH (09:02)
[2019-12-10] MEDS: PANTOPRAZOLE 40 MG TABLET. PO SCH (09:02)
[2019-12-10] MEDS: INSULIN GLARGINE SYRINGE. SQ SCH (09:02)
[2019-12-10] MEDS: CLOPIDOGREL BISULFATE 75 MG TABLET PO SCH (09:02)
[2019-12-10] MEDS: ALPRAZolam 0.25 MG TABLET PO SCH ×3 (09:02→19:43)
[2019-12-10] MEDS: LISINOPRIL 10 MG TABLET PO SCH (09:03)
[2019-12-10] MEDS: predniSONE 20 MG TABLET PO SCH (09:03)
[2019-12-10] MEDS: metFORMIN 500 MG TABLET PO SCH ×2 (09:04→17:21)
[2019-12-10] MEDS: POLYETHYLENE GLYCOL 3350 17 GM PACKET. PO SCH ×2 (09:07→09:11)
[2019-12-10] MEDS: traMADol 50 MG TABLET PO SCH (09:07)
[2019-12-10] MEDS: PROPRANOLOL 20 MG TABLET. PO SCH ×2 (09:07→19:43)
--- NOTE | 2019-12-10 09:11 | NUR ---
Patient does not want her miralax today. unadministered.
--- NOTE | 2019-12-10 09:55 | NUR ---
Patient is pleasant, calm and cooperative. She is able to focus on tasks and compliant with her medications. Patient stated she is glad that she came here, she feels that her life is much better since being on the medications. Patient stated she is looking forward to discharging on Friday to [facility].
--- NOTE | 2019-12-10 14:02 | NUR ---
SW attempted to contact caden Vazquez dtr and ended up leaving a message for her to contact JORDEN when possible.
--- NOTE | 2019-12-10 14:03 | NUR ---
[facility] Social Work Discharge Planning Form Patient Name NANI ANNE Admit Date: 26 November 2019 DISCHARGE PLAN Discharge Destination: [facility] Care Assessment: N/A Level II Assessment: N/A Transportation: Pt dtr to pick pt up; Time TBD Special Instructions/Notes: Please fax discharge orders, discharge medication list and discharge summary to the number(s) listed below. DISCHARGE TO FACILITY Facility: [facility] Address: [address] [place] [address] Contact Name: Please ask for the nurse caring for pt upon arrival Responsible Democrat: Pt dtrTaylor Pharmacy: [facility] Contact Information: [address] [place] [id number] Psychiatrist/Mental Health Follow Up: Chichi Monreal @ [facility] Contact Information: [address] [address] Please note that Chichi will also assess for a heel caser and determine which psychiatrist is a better fit for you. Primary Care Follow Up: Dr. Hines Contact Information: [address] [facility], 2nd floor; [place] [address] Appointment: Tuesday, December 24, 2019 @ 3:15PM
[2019-12-10 16:00] VITALS: BP 124/70
[2019-12-10] MEDS: QUEtiapine 50 MG TABLET. PO SCH (19:44)
--- NOTE | 2019-12-10 21:58 | PDOC ---
Exam Note: Lyle Note: Please also refer to the separate dictated note~for this date of service dictated separately.~Patient seen individually. Discussed the patient with Nursing staff reviewed the chart.~Reviewed interim history and current functioning. Reviewed vital signs,~Labs/ Radiology~and current medications noted below. Continue current treatment with the changes noted in the dictated addendum note Assessment: Vital Signs/I&O: Vital Signs Date Time Temp Pulse Resp B/P (MAP) Pulse Ox O2 Delivery O2 Flow Rate FiO2 12/10/19 19:43 74 124/70 12/10/19 16:00 98.0 18 91 12/07/19 06:26 Room Air I & O 12/09/19 12/09/19 12/10/19 15:00 23:00 07:00 Intake Total 675 ml 420 ml Balance 675 ml 420 ml Labs: Laboratory Tests Test 12/10/19 07:38 12/10/19 19:01 Glucose (Fingerstick) 110 mg/dL (70-99) H 219 mg/dL (70-99) H Current Medications: I have reviewed the current psychotropics carefully including drug interactions. Risk benefit ratio favors no change other than as noted in my dictated progress note. Diagnosis: Problems: (1) Impulse control disorder, unspecified (2) Mild cognitive impairment (3) Anxiety disorder, unspecified (4) MDD (major depressive disorder) ARIS MONTES MD Dec 10, 2019 21:58
--- NOTE | 2019-12-11 01:58 | NUR ---
Pt has been in good spirits pleasant and cooperative tonight. She is looking forward to her discharge planned for Friday. She said her son will pick her up at 1100am and he has plans for the ride home. She has had no behaviors tonight.
[2019-12-11 06:05] VITALS: BP 138/73
--- NOTE | 2019-12-11 06:47 | PDOC ---
Exam Note: Lyle Note: This note is a late entry for 12/09/2019 covers elements not covered in my initial note. Subjective: The patient was seen face to face in the evening of 12/09/2019 with Char MOY. Discussed with nursing staff, reviewed the chart. The patient gets a little more depressed in the evening, anxious but generally doing better. I met with her at length in her room in the evening. She was tearful, anxious, somewhat labile in her mood. We did give her p.r.n. Zyprexa and she did better after that. Review of Systems: No CV, , pulmonary, eye, ENT system symptoms on review. Mental Status Exam: Reasonably oriented. Speech is coherent, rapid at times. Abstraction is fair. Computation impaired. Language function is intact. Mood and affect depressed, anxious but better than before. No suicidal ideation. Laboratory Data: Reviewed. Impression: Major depressive disorder recurrent. Anxiety disorder unspecified. Mild cognitive impairment. Impulse control disorder unspecified. Plan: No change from initial note. Assessment: Vital Signs/I&O: Vital Signs Date Time Temp Pulse Resp B/P (MAP) Pulse Ox O2 Delivery O2 Flow Rate FiO2 12/11/19 06:05 98.0 74 16 138/73 (94) 96 12/07/19 06:26 Room Air I & O 12/10/19 12/10/19 12/11/19 15:00 23:00 07:00 Intake Total 1030 ml 360 ml Balance 1030 ml 360 ml Labs: Laboratory Tests Test 12/10/19 07:38 12/10/19 19:01 Glucose (Fingerstick) 110 mg/dL (70-99) H 219 mg/dL (70-99) H Current Medications: I have reviewed the current psychotropics carefully including drug interactions. Risk benefit ratio favors no change other than as noted in my dictated progress note. Diagnosis: Problems: (1) Impulse control disorder, unspecified (2) Mild cognitive impairment (3) Anxiety disorder, unspecified (4) MDD (major depressive disorder) ARIS MONTES MD Dec 11, 2019 06:47
--- NOTE | 2019-12-11 07:16 | PDOC ---
Exam Note: Lyle Note: This note is a late entry for 12/10/2019 covers elements not covered in my initial note. Subjective: The patient was seen face to face in the evening of 12/10/2019 with Attila MOY. Discussed with nursing staff, reviewed the chart. The patient slept 7 hours previous night. Today is the patients birthday and this was celebrated on the unit. She slept well. She gets a little anxious at times but as I met with her individually in the evening she said she felt much better. She was verbal, interactive, smiling. Earlier I had received a text from Heather but omitted to answer it and the question was whether she can drive post discharge. Perhaps driving should be postponed for 30 to 45 days so that the psychotropics have been adjusted in her system at which point unless contraindicated by her treating provided to her at that time she may well be able to drive. On the unit she has done little better. Review of Systems: No CV, , pulmonary, eye, ENT system symptoms on review. Mental Status Exam: Reasonably oriented. She was pleasant, verbal, interactive, quite coherent, appropriate, much better than yesterday. Abstraction is fair. Computation impaired. Language function is intact. Mood and affect anxious but better than before. No suicidal ideation. Laboratory Data: Reviewed. Impression: Major depressive disorder recurrent. Anxiety disorder unspecified. Mild cognitive impairment. Impulse control disorder unspecified. Plan: No change from initial note. Assessment: Vital Signs/I&O: Vital Signs Date Time Temp Pulse Resp B/P (MAP) Pulse Ox O2 Delivery O2 Flow Rate FiO2 12/11/19 06:05 98.0 74 16 138/73 (94) 96 12/07/19 06:26 Room Air I & O 12/10/19 12/10/19 12/11/19 15:00 23:00 07:00 Intake Total 1030 ml 360 ml Balance 1030 ml 360 ml Labs: Laboratory Tests Test 12/10/19 07:38 12/10/19 19:01 Glucose (Fingerstick) 110 mg/dL (70-99) H 219 mg/dL (70-99) H Current Medications: I have reviewed the current psychotropics carefully including drug interactions. Risk benefit ratio favors no change other than as noted in my dictated progress note. Diagnosis: Problems: (1) Impulse control disorder, unspecified (2) Mild cognitive impairment (3) Anxiety disorder, unspecified (4) MDD (major depressive disorder) ARIS MONTES MD Dec 11, 2019 07:16
[2019-12-11] MEDS: INSULIN GLARGINE SYRINGE. SQ SCH (08:48)
[2019-12-11] MEDS: MELOXICAM 15 MG TABLET. PO SCH (08:50)
[2019-12-11] MEDS: MEMANTINE 5 MG TABLET. PO SCH (08:50)
[2019-12-11] MEDS: CLOPIDOGREL BISULFATE 75 MG TABLET PO SCH (08:50)
[2019-12-11] MEDS: metFORMIN 500 MG TABLET PO SCH ×2 (08:50→17:09)
[2019-12-11] MEDS: DULoxetine HCL 60 MG CAPSULE.DR PO SCH (08:50)
[2019-12-11] MEDS: GABAPENTIN 300 MG CAPSULE. PO SCH ×3 (08:50→21:08)
[2019-12-11] MEDS: traMADol 50 MG TABLET PO SCH (08:51)
[2019-12-11] MEDS: LISINOPRIL 10 MG TABLET PO SCH (08:51)
[2019-12-11] MEDS: PANTOPRAZOLE 40 MG TABLET. PO SCH (08:51)
[2019-12-11] MEDS: ALPRAZolam 0.25 MG TABLET PO SCH ×3 (08:51→21:08)
[2019-12-11] MEDS: ALLOPURINOL 100 MG TABLET. PO SCH (08:51)
[2019-12-11] MEDS: PROPRANOLOL 20 MG TABLET. PO SCH ×2 (08:53→21:10)
[2019-12-11 08:57] LABS: BASO # 0.1 x10^3/uL (0.0-0.2); BASO % 1 % (0-3); EOS # 0.1 x10^3/uL (0.0-0.7); EOS % 2 % (0-3); HEMATOCRIT 39.8 % (36.0-47.0); HEMOGLOBIN 12.6 g/dL (12.0-15.5); LYMPH # 3.3 x10^3/uL (1.0-4.8); LYMPH % 42 % (24-48); MEAN CORPUSCULAR HEMOGLOBIN 28 pg (25-35); MEAN CORPUSCULAR HGB CONC 32 g/dL (31-37); MEAN CORPUSCULAR VOLUME 88 fL (79-100); MONO # 0.5 x10^3/uL (0.0-1.1); MONO % 6 % (0-9); NEUT % 50 % (31-73); PLATELET COUNT 230 x10^3/uL (140-400); RED BLOOD COUNT 4.53 x10^6/uL (3.50-5.40); RED CELL DISTRIBUTION WIDTH 14.3 % (11.5-14.5); WHITE BLOOD COUNT 7.9 x10^3/uL (4.0-11.0)
[2019-12-11] MEDS: predniSONE 20 MG TABLET PO SCH (09:00)
[2019-12-11 09:19] LABS: ALBUMIN 3.3 g/dL (3.4-5.0); ALBUMIN/GLOBULIN RATIO 1.2 (1.0-1.7); CALCIUM 9.2 mg/dL (8.5-10.1); CREATININE 1.1 mg/dL (0.6-1.0); GFR 48.7; POTASSIUM 3.9 mmol/L (3.5-5.1); TOTAL BILIRUBIN 0.3 mg/dL (0.2-1.0); TOTAL PROTEIN 6.1 g/dL (6.4-8.2)
--- NOTE | 2019-12-11 11:25 | NUR ---
Pt is compliant with her medication and assessment. When asking pt how she feels today she states "fine." While administering medication nurse was making conversation with pt. Nurse asked pt if she was excited to dc on Friday. Pt stated "Yes. Is that the right answer?" Nurse redirected pt by administering medication. No hallucinations or delusions noted.
--- NOTE | 2019-12-11 14:16 | NUR ---
After administering 1400 medication nurse asked pt if she would like more to drink. Pt stated "I would but I'm not going to ask you. That's all right."
[2019-12-11 16:32] VITALS: BP 115/70
[2019-12-11] MEDS: QUEtiapine 50 MG TABLET. PO SCH (21:08)
--- NOTE | 2019-12-11 22:08 | PDOC ---
Exam Note: Lyle Note: Please also refer to the separate dictated note~for this date of service dictated separately.~Patient seen individually. Discussed the patient with Nursing staff reviewed the chart.~Reviewed interim history and current functioning. Reviewed vital signs,~Labs/ Radiology~and current medications noted below. Continue current treatment with the changes noted in the dictated addendum note Assessment: Vital Signs/I&O: Vital Signs Date Time Temp Pulse Resp B/P (MAP) Pulse Ox O2 Delivery O2 Flow Rate FiO2 12/11/19 21:10 65 115/70 12/11/19 16:32 97.8 18 97 12/07/19 06:26 Room Air I & O 12/10/19 12/10/19 12/11/19 15:00 23:00 07:00 Intake Total 1030 ml 360 ml Balance 1030 ml 360 ml Labs: Laboratory Tests Test 12/11/19 07:59 12/11/19 08:05 12/11/19 19:46 Glucose (Fingerstick) 160 mg/dL (70-99) H 178 mg/dL (70-99) H White Blood Count 7.9 x10^3/uL (4.0-11.0) Red Blood Count 4.53 x10^6/uL (3.50-5.40) Hemoglobin 12.6 g/dL (12.0-15.5) Hematocrit 39.8 % (36.0-47.0) Mean Corpuscular Volume 88 fL (79-100) Mean Corpuscular Hemoglobin 28 pg (25-35) Mean Corpuscular Hemoglobin Concent 32 g/dL (31-37) Red Cell Distribution Width 14.3 % (11.5-14.5) Platelet Count 230 x10^3/uL (140-400) Neutrophils (%) (Auto) 50 % (31-73) Lymphocytes (%) (Auto) 42 % (24-48) Monocytes (%) (Auto) 6 % (0-9) Eosinophils (%) (Auto) 2 % (0-3) Basophils (%) (Auto) 1 % (0-3) Neutrophils # (Auto) 4.0 x10^3uL (1.8-7.7) Lymphocytes # (Auto) 3.3 x10^3/uL (1.0-4.8) Monocytes # (Auto) 0.5 x10^3/uL (0.0-1.1) Eosinophils # (Auto) 0.1 x10^3/uL (0.0-0.7) Basophils # (Auto) 0.1 x10^3/uL (0.0-0.2) Sodium Level 138 mmol/L (136-145) Potassium Level 3.9 mmol/L (3.5-5.1) Chloride Level 102 mmol/L (98-107) Carbon Dioxide Level 26 mmol/L (21-32) Anion Gap 10 (6-14) Blood Urea Nitrogen 20 mg/dL (7-20) Creatinine 1.1 mg/dL (0.6-1.0) H Estimated GFR (Cockcroft-Gault) 48.7 BUN/Creatinine Ratio 18 (6-20) Glucose Level 160 mg/dL (70-99) H Calcium Level 9.2 mg/dL (8.5-10.1) Total Bilirubin 0.3 mg/dL (0.2-1.0) Aspartate Amino Transferase (AST) 7 U/L (15-37) L Alanine Aminotransferase (ALT) 13 U/L (14-59) L Alkaline Phosphatase 64 U/L (46-116) Total Protein 6.1 g/dL (6.4-8.2) L Albumin 3.3 g/dL (3.4-5.0) L Albumin/Globulin Ratio 1.2 (1.0-1.7) Current Medications: I have reviewed the current psychotropics carefully including drug interactions. Risk benefit ratio favors no change other than as noted in my dictated progress note. Diagnosis: Problems: (1) Impulse control disorder, unspecified (2) Mild cognitive impairment (3) Anxiety disorder, unspecified (4) MDD (major depressive disorder) ARIS MONTES MD Dec 11, 2019 22:08
--- NOTE | 2019-12-12 04:50 | NUR ---
Nursing Note The patient was located in her room for her assessment and medication pass. The patient was pleasant during interactions with this nurse and took her medication whole. The patient was tearful during her assessment and discussed her grief r/t the of her with this nurse. The patient is currently sleeping in her room.
[2019-12-12 06:02] VITALS: BP 116/64
[2019-12-12] MEDS: predniSONE 20 MG TABLET PO SCH (07:55)
[2019-12-12] MEDS: DULoxetine HCL 60 MG CAPSULE.DR PO SCH (07:55)
[2019-12-12] MEDS: LISINOPRIL 10 MG TABLET PO SCH (07:56)
[2019-12-12] MEDS: ALLOPURINOL 100 MG TABLET. PO SCH (07:56)
[2019-12-12] MEDS: MELOXICAM 15 MG TABLET. PO SCH (07:56)
[2019-12-12] MEDS: MEMANTINE 5 MG TABLET. PO SCH (07:56)
[2019-12-12] MEDS: PANTOPRAZOLE 40 MG TABLET. PO SCH (07:56)
[2019-12-12] MEDS: metFORMIN 500 MG TABLET PO SCH ×2 (07:56→16:18)
[2019-12-12] MEDS: CLOPIDOGREL BISULFATE 75 MG TABLET PO SCH (07:56)
[2019-12-12] MEDS: ALPRAZolam 0.25 MG TABLET PO SCH ×3 (07:58→21:17)
[2019-12-12] MEDS: traMADol 50 MG TABLET PO SCH (07:59)
[2019-12-12] MEDS: GABAPENTIN 300 MG CAPSULE. PO SCH ×3 (07:59→21:16)
[2019-12-12] MEDS: PROPRANOLOL 20 MG TABLET. PO SCH ×2 (07:59→21:17)
[2019-12-12] MEDS: POLYETHYLENE GLYCOL 3350 17 GM PACKET. PO SCH (07:59)
[2019-12-12] MEDS: INSULIN GLARGINE SYRINGE. SQ SCH (09:03)
[2019-12-12 16:08] VITALS: BP 129/79
[2019-12-12] MEDS: BACLOFEN 10 MG TABLET PO PRN (16:18)
[2019-12-12] MEDS: QUEtiapine 50 MG TABLET. PO SCH (21:17)
--- NOTE | 2019-12-12 23:28 | NUR ---
Patient is in her room on assumption of care. She is sitting quietly, listening to music on the unit gopal. She is in pleasant spirits, interactive, appropriate. Compliant with assessments and medications taken whole. Denies any pain or discomfort. Patient denies SI. She appears to be sleeping comfortably at present time. Will continue to monitor.
[2019-12-13] MEDS ORDERED: ALPR0.254 PO (01:26)
[2019-12-13 05:52] VITALS: BP 132/66
--- NOTE | 2019-12-13 06:44 | PDOC ---
Exam Note: Lyle Note: This note is a late entry for 12/11/2019 covers elements not covered in my initial note. Subjective: The patient was seen face to face in the evening of 12/11/2019 with Onelia MOY. Discussed with nursing staff, reviewed the chart. The patient slept 7-3/4 hours previous night. She was somewhat anxious, and was upset that nursing staff is not able to administer her own insulin. Nursing staff did check with the assisted living and she gets insulin in an insulin pen that the nursing staff at the assisted living refill for her rather than the syringes we have here on the unit and therefore nursing staff have been administering her insulin which she resents. Discussed familys question about her driving ability and would recommend she not drive for about 4-6 weeks to give time for her body to adjust to the psychotropics initiated for her and then decision can be made with treating psychiatrist at the time whether she can resume driving. Review of Systems: No CV, , pulmonary, eye, ENT system symptoms on review. Mental Status Exam: Reasonably oriented. I met with her at length in her room in the evening. She was pleasant, verbal, interactive, quite coherent, appropriate, much better than yesterday. Abstraction is fair. Computation impaired. Language function is intact. Mood and affect anxious but better than before. No suicidal ideation. Laboratory Data: Reviewed. Impression: Major depressive disorder recurrent. Anxiety disorder unspecified. Mild cognitive impairment. Impulse control disorder unspecified. Plan: No change from initial note. Transition to assisted living on Friday. Assessment: Vital Signs/I&O: Vital Signs Date Time Temp Pulse Resp B/P (MAP) Pulse Ox O2 Delivery O2 Flow Rate FiO2 12/13/19 05:52 97.5 62 18 132/66 (88) 95 I & O 12/12/19 12/12/19 12/13/19 15:00 23:00 07:00 Intake Total 960 ml 600 ml Balance 960 ml 600 ml Labs: Laboratory Tests Test 12/12/19 07:52 12/12/19 19:17 Glucose (Fingerstick) 145 mg/dL (70-99) H 183 mg/dL (70-99) H Current Medications: I have reviewed the current psychotropics carefully including drug interactions. Risk benefit ratio favors no change other than as noted in my dictated progress note. Diagnosis: Problems: (1) Impulse control disorder, unspecified (2) Mild cognitive impairment (3) Anxiety disorder, unspecified (4) MDD (major depressive disorder) ARIS MONTES MD Dec 13, 2019 06:44
--- NOTE | 2019-12-13 07:03 | PDOC ---
Exam Note: Lyle Note: This note is a late entry for 12/12/2019 covers elements not covered in my initial note. Subjective: The patient was seen face to face in the evening of 12/12/2019 with Onelia MOY. Discussed with nursing staff, reviewed the chart. She has been pleasant, cooperative. Review of Systems: No CV, , pulmonary, eye, ENT system symptoms on review. Mental Status Exam: Reasonably oriented. She was pleasant, verbal, interactive, quite coherent. Abstraction is fair. Computation impaired. Language function is intact. Mood and affect anxious but better than before. No suicidal ideation. Laboratory Data: Reviewed. Impression: Major depressive disorder recurrent. Anxiety disorder unspecified. Mild cognitive impairment. Impulse control disorder unspecified. Plan: I once again discussed with the patient that she should not drive for the next 4 to 6 weeks till she is fully adjusted to her current psychotropics and discuss with her psychiatrist at that time about resuming driving. Assessment: Vital Signs/I&O: Vital Signs Date Time Temp Pulse Resp B/P (MAP) Pulse Ox O2 Delivery O2 Flow Rate FiO2 12/13/19 05:52 97.5 62 18 132/66 (88) 95 I & O 12/12/19 12/12/19 12/13/19 15:00 23:00 07:00 Intake Total 960 ml 600 ml Balance 960 ml 600 ml Labs: Laboratory Tests Test 12/12/19 07:52 12/12/19 19:17 Glucose (Fingerstick) 145 mg/dL (70-99) H 183 mg/dL (70-99) H Current Medications: I have reviewed the current psychotropics carefully including drug interactions. Risk benefit ratio favors no change other than as noted in my dictated progress note. Diagnosis: Problems: (1) Impulse control disorder, unspecified (2) Mild cognitive impairment (3) Anxiety disorder, unspecified (4) MDD (major depressive disorder) ARIS MONTES MD Dec 13, 2019 07:03
[2019-12-13] MEDS: metFORMIN 500 MG TABLET PO SCH (08:22)
[2019-12-13] MEDS: PROPRANOLOL 20 MG TABLET. PO SCH (08:22)
[2019-12-13] MEDS: MELOXICAM 15 MG TABLET. PO SCH (08:22)
[2019-12-13] MEDS: DULoxetine HCL 60 MG CAPSULE.DR PO SCH (08:22)
[2019-12-13 08:23] VITALS: BP 132/66
[2019-12-13] MEDS: predniSONE 20 MG TABLET PO SCH (08:23)
[2019-12-13] MEDS: GABAPENTIN 300 MG CAPSULE. PO SCH (08:23)
[2019-12-13] MEDS: MEMANTINE 5 MG TABLET. PO SCH (08:23)
[2019-12-13] MEDS: LISINOPRIL 10 MG TABLET PO SCH (08:23)
[2019-12-13] MEDS: CLOPIDOGREL BISULFATE 75 MG TABLET PO SCH (08:23)
[2019-12-13] MEDS: PANTOPRAZOLE 40 MG TABLET. PO SCH (08:23)
[2019-12-13] MEDS: ALLOPURINOL 100 MG TABLET. PO SCH (08:24)
[2019-12-13] MEDS: traMADol 50 MG TABLET PO SCH (08:24)
[2019-12-13] MEDS: ALPRAZolam 0.25 MG TABLET PO SCH (08:24)
[2019-12-13] MEDS: INSULIN GLARGINE SYRINGE. SQ SCH (08:26)
--- NOTE | 2019-12-13 09:00 | NUR ---
Pt is calm, cooperative, compliant. No agitation, no aggression, no hallucinations or delusions noted. She is compliant with her medication and assessment.
--- NOTE | 2019-12-13 11:20 | NUR ---
Transition Record was faxed to follow-up provider with the following elements: Reason for admission, procedures, tests, principal diagnosis, pending studies, patient instructions, 16/09 contact information for unit, phone number to obtain pending test results, plan for follow-up care, physician follow-up, advanced directive information, and medication list with dose, duration and instructions. This information was included in the following documents: History and physical, lab results, study results, progress notes, social work planning form, DC instruction form, patient visit summary, and medication reconciliation form. Date & time record faxed: 12/13/2019 1100 Record faxed to: Dora Whalen Record discussed with/ report given to: Esperanza
--- NOTE | 2019-12-13 21:29 | DS ---
DATE OF DISCHARGE: 12/13/2019 DISCHARGE SUMMARY/PSYCHIATRIC PROGRESS NOTE This note covers elements not covered in my initial note 12/13/2019. REASON FOR ADMISSION: Please refer to the admission history for details. Briefly, the patient is a 74-year-old female referred to us from [facility] where she presented from [facility] on account of worsening symptoms of depression with suicidal ideation, wanting to . She reportedly had talked about stopping her medications or go to her son's home to get a firearm. She was tearful, paranoid. Symptoms had been worsening since her in 05/2019. The patient's behaviors were deemed dangerous, unmanageable, had failed outpatient psychiatric interventions resulting in this referral. Initially, [facility] until a repeat COVID screen was negative and then she transferred to [facility] on __. SIGNIFICANT FINDINGS AND CLINICAL COURSE: Following admission, the patient was seen daily individually by myself from a psychiatric standpoint, medical followup per Dr. Schroeder/Dr. Mcgowan. The patient remained depressed, withdrawn, anxious, irritable, somewhat paranoid. Adjustments were made in her psychotropics. She seemed to respond to a combination of duloxetine 60 mg a day, gabapentin 300 mg t.i.d., Namenda 5 mg daily, Xanax 0.25 mg t.i.d., and Seroquel 75 mg at bedtime. REVIEW OF SYSTEMS: Prior to discharge on 12/13/2019, no CV, , pulmonary, eye, ENT system symptoms on review. MENTAL STATUS EXAM: Reasonably oriented. Speech is coherent, abstraction fair, computation impaired, language function intact, attention span short. Mood and affect is improved. No suicidal ideation at discharge. FINAL DIAGNOSES: Major depressive disorder, recurrent, in partial remission; anxiety disorder, unspecified; impulse control disorder, unspecified. Rest as above. DISCHARGE MEDICATIONS: Please refer to the MRAD. DISCHARGE INSTRUCTIONS: Outpatient psychiatric and medical followup at [facility]. Time for discharge day management greater than 30 minutes. MAN Rusty MONTES MD DR: VISHNU/tony JOB#: [id number] / [id number]
--- NOTE | 2019-12-13 22:00 | PDOC ---
Exam Note: Lyle Note: Please also refer to the separate dictated note~for this date of service dictated separately.~Patient seen individually. Discussed the patient with Nursing staff reviewed the chart.~Reviewed interim history and current functioning. Reviewed vital signs,~Labs/ Radiology~and current medications noted below. Continue current treatment with the changes noted in the dictated addendum note Assessment: Vital Signs/I&O: Vital Signs Date Time Temp Pulse Resp B/P (MAP) Pulse Ox O2 Delivery O2 Flow Rate FiO2 12/13/19 09:25 20 12/13/19 08:23 62 132/66 12/13/19 05:52 97.5 95 I & O 12/12/19 12/12/19 12/13/19 14:59 22:59 06:59 Intake Total 960 ml 600 ml Balance 960 ml 600 ml Labs: Laboratory Tests Test 12/13/19 08:13 Glucose (Fingerstick) 172 mg/dL (70-99) H Current Medications: I have reviewed the current psychotropics carefully including drug interactions. Risk benefit ratio favors no change other than as noted in my dictated progress note. Diagnosis: Problems: (1) Major depressive disorder in partial remission (2) Anxiety disorder, unspecified (3) Impulse control disorder, unspecified ARIS MONTES MD Dec 13, 2019 22:00
== END 2019-12-13 11:20 | DRG 885 ==
LOC: GEROPSY 11:20
PROVIDERS: ADMIT Psychiatry & Neurology Psychiatry; ATTEND Psychiatry & Neurology Psychiatry
DX: F33.9 Major depressive disorder, recurrent, unspecified (principal); R45.851 Suicidal ideations; F41.9 Anxiety disorder, unspecified; F63.9 Impulse disorder, unspecified; G31.84 Mild cognitive impairment of uncertain or unknown etiology; Z79.899 Other long term (current) drug therapy; Z20.828 Contact with and (suspected) exposure to other viral communicable diseases; Z66 Do not resuscitate
CPT/HCPCS: 36415; 80053; 80061; 82306; 82607; 82947; 83036; 83540; 83550; 83735; 84436; 84443; 84480; 85025; 85379; 86592; 93005; J1815; J7512; U0003-CS